=== PATIENT | male | born 1945 | race Caucasian/White ===

== ENCOUNTER 2017-12-21 12:06 | Inpatient (IN) | payer OTHER, BC ==
--- NOTE | 2017-12-21 12:22 | PDOC ---
History of Present Illness - General Chief Complaint: Wound Stated Complaint: SWOLLEN RT LEG Time Seen by Provider: 12/21/17 12:22 - History of Present Illness Initial Comments: 72 year old male with PMH of diabetes (last A1C 7.1) and HTN presenting with right foot swelling, redness, pain, and fever for the past week. Patient states that he felt some general warmth on Saturday01/14/18 which evolved into some redness and swelling that has worsened since and gradually spread up his leg. He saw his PCP (Dr. Lozano) on Saturday and was given Keflex daily since then but with gradually worsening. Denies any recent trauma to foot but did hit his right levy a few weeks prior that healed well. He does also admit to some athlete's foot and may have had a small skin opening under his right pinky toe. Denies any nausea, vomiting, diarrhea, chest penn, abdominal pain, headache, visual symptoms, drainage, or other symptoms. 12/21/17 13:12 Past History - Past Medical History Allergies/Adverse Reactions: Allergies Allergy/AdvReac Type Severity Reaction Status Date / Time No Known Allergies Allergy Verified 12/21/17 12:10 Home Medications: Ambulatory Orders Alfuzosin HCl [Alfuzosin HCl ER] 10 mg PO DAILY 12/21/17 Gardiance 25 mg PO DAILY 12/21/17 Pioglitazone HCl 30 mg PO DAILY 12/21/17 Ramipril [Altace] 50 mg PO DAILY 12/21/17 Sitagliptin Phosphate [Januvia] 100 mg PO DAILY 12/21/17 - Suicide/Smoking/Psychosocial Hx Smoking History: Never smoked Hx Alcohol Use: No Drug/Substance Use Hx: No Review of Systems - Review of Systems Constitutional: Yes: Fever. No: Chills, Diaphoresis, Loss of Appetite, Malaise , Night Sweats HEENTM: No: Eye Pain, Blurred Vision Respiratory: No: Shortness of Breath, SOB with Exertion, Wheezing Cardiac (ROS): No: Chest Pain, Edema, Irregular Heart Rate, Lightheadedness ABD/GI: No: Diarrhea, Nausea, Vomiting : No: Dysuria, Discharge Musculoskeletal: No: Back Pain, Joint Pain, Joint Swelling Integumentary: Yes: Erythema, Lesions, Rash. No: Bruising, Lumps Neurological: No: Headache, Numbness, Paresthesia Psychiatric: No: Anxiety, Depression Endocrine: No: Flushing, Intolerance to Cold, Intolerance to Heat Hematologic/Lymphatic: No: Anemia, Blood Clots, Easy Bleeding *Physical Exam - Vital Signs Last Vital Signs Temp Pulse Resp BP Pulse Ox 98.3 F 83 20 167/90 99 12/21/17 12:07 12/21/17 12:07 12/21/17 12:07 12/21/17 12:07 12/21/17 12:07 - Physical Exam General Appearance: Yes: Nourished, Appropriately Dressed. No: Apparent Distress HEENT: positive: EOMI, JANET, Normal ENT Inspection, Normal Voice Neck: positive: Trachea midline, Normal Thyroid, Supple. negative: Tender, Rigid Respiratory/Chest: positive: Lungs Clear, Normal Breath Sounds. negative: Chest Tender, Respiratory Distress, Accessory Muscle Use Cardiovascular: positive: Regular Rhythm, Regular Rate Gastrointestinal/Abdominal: positive: Normal Bowel Sounds, Flat, Soft. negative : Tender Musculoskeletal: positive: Normal Inspection. negative: Decreased Range of Motion Extremity: positive: Normal Capillary Refill, Normal Range of Motion, Tender, Swelling (Right leg swelling and erythema to his knee with minor mottling proximally. No obvious area of complete skin breakdown but toes do have suprficial skin breakdown consistent with his history of tinea pedis), Erythema , Inflammation. negative: Normal Inspection Integumentary: positive: Dry, Warm, Rash (Pe above). negative: Normal Color Neurologic: positive: Fully Oriented, Alert, Normal Mood/Affect, Normal Response , Motor Strength 5/5 ED Treatment Course - LABORATORY CBC & Chemistry Diagram: 12/21/17 12:50 12/21/17 12:50 Medical Decision Making - Medical Decision Making 72 year old male diabetic with right leg cellulites that is recalcitrant to oral Keflex therapy over the past few days. No obvious sign of recent leg trauma , labs WNL, and duplex/ XR negative for DVT/ osteo. Patient given Vanc, Zosyn, and will be admitted to hospitalist service per Dr. Lozano's request. EKG Rate 77, MD 170, QRS 92, QTc 434, normal axis, no ST or T wave changes. 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
--- NOTE | 2017-12-21 12:59 | PDOC ---
Attending Attestation - Resident Resident Name: Irvin Pabon - ED Attending Attestation I have performed the following: I have examined & evaluated the patient, The case was reviewed & discussed with the resident, I agree w/resident's findings & plan - HPI HPI: 12/21/17 16:33 72 YOM, with a significant past medical history of diabetes mellitus and HTN, who presents to the emergency department with, 1 week of right lower extremity pain, erythema, and swelling. Patient notes his symptoms initially onset warmth progressing to erythema, swelling, and spreading up his leg. As per patient, he saw his PCP Dr. Lozano who prescribed Keflex (compliant) however, symptoms has worsened. He denies any trauma to the limb but endorses, possible tinea to the right pinky toe. He denies any recent fevers, headache or dizziness. He denies any recent nausea , vomit, diarrhea or constipation. He denies any recent chest pain or shortness of breath. He denies any recent dysuria, frequency, urgency or hematuria. Allergies: NKA Social History: Nonsmoker. Denies EtOH use and recreational drug use. Primary Care Physician: Dr. Lozano - Physicial Exam PE: 12/21/17 16:33 NAD, well appearing, MMM, nl conjunctiva, anicteric; neck supple. lungs clear, RRR, abdomen soft nontender. BAINS x4, no focal neuro deficits. RLE 4+ peripheral edema, soft compartment, +erythema, warmth and diffuse tenderness, erythema extending from lower leg up to medial inner thigh/knee. SILT, 5/5 plantar and dorsiflexion. +calf tenderness. 2+ DP pulses. WWP. - Medical Decision Making 12/21/17 14:09 I, Yessi Beck MD, attest that this document has been prepared under my direction and personally reviewed by me in its entirety. I further attest, that it accurately reflects all work, treatment, procedures and medical decision -making performed by me. 72 YOM with DM2, HTN presenting with progressive RLE pain, swelling and redness , +calf pain, subjective chills x 1 week. Failed outpatient keflex x 4 days, last dose today without effect. +started with possible athelets foot, but no trauma, immobilization or bites. Vital signs reviewed, wnl. No fever. Infection Plan: CBC, CMP, blood cx, lactic acid, ECG, CXR. resuscitative IVF, antipyretics, analgesia, IV abx vancomcyin/zosyn given diabetes and extensive, RLE cellulitis failing outpatient ABX. Duplex US to r/o DVT, though low suspicion, more circumferential findings c/w cellulitis. Prior notes reviewed, including admissions, discharges and consultations. laboratory results and imaging reviewed, basic labs and lytes wnl, no wbc ct. inflammatory markers pending. lytes and Cr normal. Cultures pending, no open wounds. EKG normal sinus rhythm, no interval abnormalities, narrow QRS, ST and T wave segments and morphology normal. Nonspecific T wave abnormalities duplex neg for DVT XR RLE with lucency in right 5th toe region, no fx or subluxation, arthritic changes present. Admit for RLE cellulitis, IV abx, admit to hospitalist team, inpatient ID cs.. Discussed results and management plan with pt and family member at bedside, agree with impression and plan 12/21/17 16:35 Heart Score/ECG Review - ECG Impressions Normal ECG: Yes Comment:: 12/21/17 16:04 EKG normal sinus rhythm, no interval abnormalities, narrow QRS, ST and T wave segments and morphology normal. Nonspecific T wave abnormalities
[2017-12-21 13:21] LABS: BASO % 0.5 % (0-2.0); EOS % 0.7 % (0-4.5); HEMATOCRIT 41.8 % (35.4-49); HEMOGLOBIN 14.1 GM/dL (11.7-16.9); LYMPH % 15.5 % (8-40); MCH 30.2 pg (25.7-33.7); MCHC 33.8 g/dl (32.0-35.9); MEAN CELL VOLUME 89.1 fl (80-96); MEAN PLT VOLUME 7.1 fl (7.5-11.1); MONO % 11.3 % (3.8-10.2); PLATELET COUNT 246 K/MM3 (134-434); RBC 4.69 M/mm3 (4.00-5.60); RDW 13.2 % (11.9-15.9); WHITE BLOOD COUNT 8.7 K/mm3 (4.0-10.0)
[2017-12-21] MEDS ORDERED: VANCOMYCIN 1,500 MG in DEXTROSE 5%-WATER - 500 ML IVPB ONE (13:23)
[2017-12-21] MEDS ORDERED: PIPERACILLIN/TAZOB 4.5 GM 4.5 GM in DEXTROSE 5%-WATER 100 ML IVPB ONE (13:23)
[2017-12-21] MEDS ORDERED: PIPERACILLIN/TAZOB 4.5 GM 4.5 GM/100 ML BAG IVPB ONE (13:26)
[2017-12-21 13:46] LABS: INR 1.08 (0.83-1.09); PROTHROMBIN TIME (PATIENT) 12.8 SEC (9.7-13.0)
[2017-12-21 14:03] LABS: URINE APPEARANCE CLEAR; URINE BILIRUBIN NEGATIVE (<2.0 mg/dL); URINE COLOR LTYELLOW; URINE GLUCOSE (UA) 3+ (NEGATIVE); URINE KETONE NEGATIVE (NEGATIVE); URINE LEUK ESTERASE NEGATIVE (NEGATIVE); URINE NITRITE NEGATIVE (NEGATIVE); URINE PROTEIN NEGATIVE (NEGATIVE); URINE UROBILINOGEN NEGATIVE mg/dL (0.2-1.0)
[2017-12-21 14:05] LABS: ALBUMIN 3.4 g/dl (3.4-5.0); ALK PHOS 46 U/L (45-117); ANION GAP 8 MMOL/L (8-16); BILIRUBIN,TOTAL 0.7 mg/dL (0.2-1); BLOOD UREA NITROGEN 23 mg/dL (7-18); CALCIUM 9.1 mg/dL (8.5-10.1); CHLORIDE 100 mmol/L (98-107); CO2 28 mmol/L (21-32); CREATININE 1.3 mg/dL (0.55-1.3); GLUCOSE,RANDOM 167 mg/dL (74-106); POTASSIUM 4.4 mmol/L (3.5-5.1); SGOT/AST 55 U/L (15-37); SGPT/ALT 67 U/L (13-61); SODIUM 135 mmol/L (136-145); TOT PROT 7.9 g/dl (6.4-8.2)
[2017-12-21 14:17] LABS: ERYTHROCYTE SEDIMENTATION RATE 75 mm/hr (0-20)
[2017-12-21] MEDS ORDERED: VANCOMYCIN 1 GRAM (PRE-DOCKED) 1,000 MG/250 ML BAG IVPB ONE (14:40)
--- NOTE | 2017-12-21 16:25 | HP ---
CHIEF COMPLAINT: right lower extremity pain, redness, swelling PCP: Dr. Lozano HISTORY OF PRESENT ILLNESS: Patient is a 72 year old male with a significant past medical history of diabetes (controlled on 3 oral medications), BPH and hypertension. He presents to the ED with right lower extremity (from knee to right foot) edema, redness pain and fever for the past week. States his pain began last Saturday when he noted his right leg began to hurt and noted that his right leg was warm to touch, but mostly on the ankle. He noticed that the redness began to worsen and extended up from his ankle to his knee. He denies any trauma. He is noted to have a fungal infection of both feet. He went to see his primary care physician on Saturday and was prescribed oral antibiotics of Keflex, and took it as prescribed. His right lower leg worsened, became more painful prompting him to come to the ED. He denies any nausea, vomiting, diarrhea, chest penn, abdominal pain, headache, visual symptoms, drainage, or other symptoms. ER course was notable for: (1) vascular study, negative for dvt (2) fibula xray, negative for fracture (3) red, shiny edematous right lower extremity that is hot and painful to touch as well as +3 pitting edema. not weeping. Recent Travel: PAST MEDICAL HISTORY: diabetes, hypertension PAST SURGICAL HISTORY: n/a Social History: Smoking: years ago, no longer smokes Alcohol: occasional Drugs: denies Family History: Allergies No Known Allergies Allergy (Verified 12/21/17 12:10) HOME MEDICATIONS: Home Medications Medication Instructions Recorded Alfuzosin HCl [Alfuzosin HCl ER] 10 mg PO DAILY 12/21/17 Gardiance 25 mg PO DAILY 12/21/17 Pioglitazone HCl 30 mg PO DAILY 12/21/17 Ramipril [Altace] 50 mg PO DAILY 12/21/17 Sitagliptin Phosphate [Januvia] 100 mg PO DAILY 12/21/17 PHYSICAL EXAMINATION Vital Signs - 24 hr 12/21/17 12/21/17 12:07 14:21 Temperature 98.3 F Pulse Rate 83 Respiratory 20 Rate Blood Pressure 167/90 O2 Sat by Pulse 99 99 Oximetry (%) GENERAL: Awake, alert, and fully oriented, in no acute distress. HEAD: Normal with no signs of trauma. EYES: Pupils equal, round and reactive to light, extraocular movements intact, sclera anicteric, conjunctiva clear. No lid lag. EARS, NOSE, THROAT: Ears normal, nares patent, oropharynx clear without exudates. Moist mucous membranes. NECK: Normal range of motion, supple without lymphadenopathy, JVD, or masses. LUNGS: Breath sounds equal, clear to auscultation bilaterally. No wheezes, and no crackles. No accessory muscle use. HEART: Regular rate and rhythm ABDOMEN: Soft, nontender, not distended, normoactive bowel sounds, no guarding, no rebound, no masses. No hepatomegaly or splenomegaly. MUSCULOSKELETAL: Normal range of motion at all joints. No bony deformities or tenderness. No CVA tenderness. UPPER EXTREMITIES: 2+ pulses, warm, well-perfused. No cyanosis. No clubbing. No peripheral edema. LOWER EXTREMITIES: red, shiny edematous right lower extremity that is hot and painful to touch as well as +3 pitting edema. not weeping. NEUROLOGICAL: Cranial nerves II-XII intact. Normal speech. Normal gait. PSYCHIATRIC: Cooperative. Good eye contact. Appropriate mood and affect. Laboratory Results - last 24 hr 12/21/17 12/21/17 12/21/17 01:35 12:50 12:50 WBC 8.7 RBC 4.69 Hgb 14.1 Hct 41.8 MCV 89.1 MCH 30.2 MCHC 33.8 RDW 13.2 Plt Count 246 MPV 7.1 L Absolute Neuts (auto) 6.3 Neutrophils % 72.0 Lymphocytes % 15.5 Monocytes % 11.3 H Eosinophils % 0.7 Basophils % 0.5 Nucleated RBC % 0 ESR 75 H PT with INR INR Sodium 135 L Potassium 4.4 Chloride 100 Carbon Dioxide 28 Anion Gap 8 BUN 23 H Creatinine 1.3 Creat Clearance w eGFR 54.42 Random Glucose 167 H Lactic Acid Calcium 9.1 Total Bilirubin 0.7 AST 55 H ALT 67 H Alkaline Phosphatase 46 C-Reactive Protein 5.3 H Total Protein 7.9 Albumin 3.4 Urine Color Ltyellow Urine Appearance Clear Urine pH 5.0 Ur Specific [place] 1.017 Urine Protein Negative Urine Glucose (UA) 3+ H Urine Ketones Negative Urine Blood Negative Urine Nitrite Negative Urine Bilirubin Negative Urine Urobilinogen Negative Ur Leukocyte Esterase Negative 12/21/17 12/21/17 13:20 13:20 WBC RBC Hgb Hct MCV MCH MCHC RDW Plt Count MPV Absolute Neuts (auto) Neutrophils % Lymphocytes % Monocytes % Eosinophils % Basophils % Nucleated RBC % ESR PT with INR 12.80 INR 1.08 Sodium Potassium Chloride Carbon Dioxide Anion Gap BUN Creatinine Creat Clearance w eGFR Random Glucose Lactic Acid 1.0 Calcium Total Bilirubin AST ALT Alkaline Phosphatase C-Reactive Protein Total Protein Albumin Urine Color Urine Appearance Urine pH Ur Specific [place] Urine Protein Urine Glucose (UA) Urine Ketones Urine Blood Urine Nitrite Urine Bilirubin Urine Urobilinogen Ur Leukocyte Esterase ASSESSMENT/PLAN: Patient is a 72 year old male with a significant past medical history of diabetes (controlled on 3 oral medications), BPH and hypertension. He presents to the ED with right lower extremity (from knee to right foot) edema, redness, pain and fever for the past week. States his pain began last Saturday afternoon when he noted his right leg began to hurt and noted that his right leg was warm to touch, but mostly on the ankle. He noticed that the redness began to worsen and extended up from his ankle to his knee. He denies any trauma. He is noted to have a fungal infection of both feet. He went to see his primary care physician on Saturday and was prescribed oral antibiotics of Keflex, and took it as prescribed. His right lower leg worsened, became more painful prompting him to come to the ED. He denies any nausea, vomiting, diarrhea, chest penn, abdominal pain, headache, visual symptoms, drainage, or other symptoms. ID: Cellulitis of right lower extremity. Negative for dvt No fracture seen on xray MRI to rule out osteo will order: Zosyn 1 time dose and consult ID for further recommendations Patient received Vanco 1500mg and Zosyn 4.5gm in the ED. Elevate right lower extremity with 2 pillows Monitor for pain - toradol ordered mri to rule out osteo Card: Hypertension: On Ramipril 10mg. monitor bp. elevated in the ED. (took med this morning) Endocrine Diabetes. hmga1c, diabetic diet. Home meds of Lalito Coughlin Januvia (Jardiance NF), will also cover with Novolog and SS. : BPH. on Alfuzosin (NF here) per pharmacy. Will ask patient to bring in home medication. fen diabetic diet monitor electrolytes no ivf indicated. prophy heparin bid full code. Visit type - Emergency Visit Emergency Visit: Yes ED Registration Date: 12/21/17 Care time: The patient presented to the Emergency Department on the above date and was hospitalized for further evaluation of their emergent condition. - New Patient This patient is new to me today: Yes Date on this admission: 12/21/17 - Critical Care Critical Care patient: No
--- NOTE | 2017-12-21 16:39 | EKG ---
Test Reason : Blood Pressure : / mmHG Vent. Rate : 077 BPM Atrial Rate : 077 BPM P-R Int : 170 ms QRS Dur : 092 ms QT Int : 384 ms P-R-T Axes : 066 007 031 degrees QTc Int : 434 ms NORMAL SINUS RHYTHM NORMAL ECG NO PREVIOUS ECGS AVAILABLE Confirmed by JUSTO BIRD, KIKI ([id number]) on 12/21/2017 4:39:42 PM Referred By: Confirmed By:KIKI KEMP MD
[2017-12-21] MEDS: INSULIN SLIDING SCALE (NOVOLOG) 1 VIAL SQ SCH ×2 (18:00→21:45)
--- NOTE | 2017-12-21 18:49 | CON.ID ---
Consult Consult Specialty:: infectious diseases Referred by:: Ivan Reason for Consultation:: cellulitits of the leg - History of Present Illness Chief Complaint: pain and swelling of the leg History of Present Illness: 72 year old male with a significant past medical history of diabetes , BPH and hypertension. He presents to the ED with right lower extremity (from knee to right foot) edema, redness pain and fever for the past week. States his pain began last Saturday when he noted his right leg began to hurt and noted that his right leg was warm to touch, but mostly on the ankle. He noticed that the redness began to worsen and extended up from his ankle to his knee. He denies any trauma. He is noted to have a fungal infection of both feet. He went to see his primary care physician on Saturday and was prescribed oral antibiotics of Keflex, and took it as prescribed. His right lower leg worsened , became more painful prompting him to come to the ED after he spoke to his primary doctor - History Source History Provided By: Patient Limitations to Obtaining History: No Limitations - Alcohol/Substance Use Hx Alcohol Use: No - Smoking History Smoking history: Never smoked Home Medications - Allergies Allergies/Adverse Reactions: Allergies Allergy/AdvReac Type Severity Reaction Status Date / Time No Known Allergies Allergy Verified 12/21/17 12:10 - Home Medications Home Medications: Ambulatory Orders Alfuzosin HCl [Alfuzosin HCl ER] 10 mg PO DAILY 12/21/17 Gardiance 25 mg PO DAILY 12/21/17 Pioglitazone HCl 30 mg PO DAILY 12/21/17 Ramipril [Altace] 50 mg PO DAILY 12/21/17 Sitagliptin Phosphate [Januvia] 100 mg PO DAILY 12/21/17 Review of Systems - Review of Systems Constitutional: reports: No Symptoms Eyes: reports: No Symptoms HENT: reports: No Symptoms Neck: reports: No Symptoms Cardiovascular: reports: No Symptoms Respiratory: reports: No Symptoms Gastrointestinal: reports: No Symptoms Genitourinary: reports: No Symptoms Musculoskeletal: reports: No Symptoms Integumentary: reports: Change in Color, Erythema (rt leg) Neurological: reports: No Symptoms Endocrine: reports: No Symptoms Hematology/Lymphatic: reports: No Symptoms Psychiatric: reports: No Symptoms Physical Exam Vital Signs: Vital Signs Temperature 98.3 F 12/21/17 12:07 Pulse Rate 83 12/21/17 12:07 Respiratory Rate 20 12/21/17 12:07 Blood Pressure 167/90 12/21/17 12:07 O2 Sat by Pulse Oximetry (%) 99 12/21/17 14:21 Constitutional: Yes: Well Nourished, Calm, Mild Distress Cardiovascular: Yes: Regular Rate and Rhythm Respiratory: Yes: Regular, CTA Bilaterally Gastrointestinal: Yes: Normal Bowel Sounds, Soft Musculoskeletal: Yes: Other Extremities: Yes: Erythema Edema: RLE: 1+ Integumentary: Yes: Erythema, Other (rt leg swelling) Neurological: Yes: Alert, Oriented Psychiatric: Yes: Alert, Oriented Labs: CBC, BMP 12/21/17 12:50 12/21/17 12:50 Assessment/Plan cellulittis of the rt leg htn dm swelling of the rt leg pain plan will start broad spectrum abx will see how the leg is tomorrow and then take the final decision rest as per the team
[2017-12-21] MEDS ORDERED: PIPERACILLIN/TAZOB 3.375 GM 3.375 GM in DEXTROSE 5%-WATER - 50 ML IVPB ONE (21:00)
[2017-12-21] MEDS ORDERED: INSULIN (NOVOLOG) ASPART 100 UNITS/ML 10ML VIAL ONE (21:41)
[2017-12-21] MEDS: HEPARIN NA (PORCINE) 5,000 UNITS/ML 1ML VIAL SQ SCH (21:45)
[2017-12-21] MEDS: ACETAMINOPHEN 325 MG TABLET (FP) PO PRN (21:45)
[2017-12-21 23:47] VITALS: BMI 33.7
[2017-12-21] MEDS: KETOROLAC TROMETHAMINE 10 MG TABLET PO SCH (23:56)
[2017-12-22] MEDS ORDERED: PIPERACILLIN/TAZOBACTAM 3.375 GM VIAL IVPB ONE ×3 (01:40→16:39)
[2017-12-22] MEDS ORDERED: DEXTROSE 5%-WATER - 50 ML IVPB ONE ×3 (01:40→16:40)
[2017-12-22] MEDS: PIPERACILLIN/TAZOB 3.375 GM 3.375 GM in DEXTROSE 5%-WATER - 50 ML IVPB SCH ×3 (01:52→17:34)
[2017-12-22] MEDS ORDERED: PT OWN MED DRAWER 7, Y5N ONE (06:30)
[2017-12-22] MEDS: sitaGLIPtin PHOSPHATE 100 MG TABLET (FP) PO SCH (06:34)
[2017-12-22] MEDS: PIOGLITAZONE HCL 30 MG TABLET (FP) PO SCH (06:34)
[2017-12-22] MEDS: KETOROLAC TROMETHAMINE 10 MG TABLET PO SCH ×3 (06:34→17:38)
[2017-12-22] MEDS: INSULIN SLIDING SCALE (NOVOLOG) 1 VIAL SQ SCH ×4 (06:35→21:17)
[2017-12-22] MEDS ORDERED: [UNRECOGNIZED DRUG - OTHER] PO SCH (10:00)
[2017-12-22] MEDS: HEPARIN NA (PORCINE) 5,000 UNITS/ML 1ML VIAL SQ SCH ×2 (10:01→21:18)
[2017-12-22] MEDS: TAMSULOSIN HCL 0.4 MG CAP.ER.24H (FP) PO SCH (10:02)
[2017-12-22] MEDS: RAMIPRIL 5 MG CAPSULE (FP) PO SCH (10:02)
[2017-12-22 10:04] LABS: HEMATOCRIT 39.7 % (35.4-49); HEMOGLOBIN 13.2 GM/dL (11.7-16.9); MCH 29.8 pg (25.7-33.7); MCHC 33.4 g/dl (32.0-35.9); MEAN CELL VOLUME 89.5 fl (80-96); MEAN PLT VOLUME 6.7 fl (7.5-11.1); PLATELET COUNT 242 K/MM3 (134-434); RBC 4.44 M/mm3 (4.00-5.60); RDW 12.9 % (11.9-15.9)
[2017-12-22 11:14] LABS: ALBUMIN 3.2 g/dl (3.4-5.0); ALK PHOS 46 U/L (45-117); ANION GAP 7 MMOL/L (8-16); BILIRUBIN,TOTAL 0.9 mg/dL (0.2-1); BLOOD UREA NITROGEN 26 mg/dL (7-18); CALCIUM 8.5 mg/dL (8.5-10.1); CHLORIDE 99 mmol/L (98-107); CHOLESTEROL 218 mg/dL (50-200); CO2 28 mmol/L (21-32); CREATININE 1.4 mg/dL (0.55-1.3); GLUCOSE,RANDOM 181 mg/dL (74-106); MAGNESIUM 2.3 mg/dL (1.8-2.4); POTASSIUM 4.4 mmol/L (3.5-5.1); SGOT/AST 44 U/L (15-37); SGPT/ALT 61 U/L (13-61); SODIUM 134 mmol/L (136-145); TOT PROT 7.6 g/dl (6.4-8.2); TRIGLYCERIDES 148 mg/dL (0-150)
[2017-12-22] MEDS ORDERED: INSULIN (NOVOLOG) ASPART 100 UNITS/ML 10ML VIAL ONE ×3 (12:17→21:09)
--- NOTE | 2017-12-22 12:21 | PN ---
Progress Note, Physician History of Present Illness: patient feeling well pain better swelling has decreased - Current Medication List Current Medications: Active Medications Acetaminophen (Tylenol -) 650 mg PO Q6H PRN PRN Reason: PAIN LEVEL 7 - 10 Last Admin: 12/21/17 21:45 Dose: 650 mg Heparin Sodium (Porcine) (Heparin -) 5,000 unit SQ BID [facility] Last Admin: 12/22/17 10:01 Dose: 5,000 unit Piperacillin Sod/Tazobactam (Sod 3.375 gm/ Dextrose) 50 mls @ 100 mls/hr IVPB Q8H-IV [facility]; Protocol Last Admin: 12/22/17 10:02 Dose: 100 mls/hr Insulin Aspart (Novolog Vial Sliding Scale -) 1 vial SQ ACHS [facility]; Protocol Last Admin: 12/22/17 11:41 Dose: 2 units Ketorolac Tromethamine (Toradol) 10 mg PO Q6HPO [facility] Stop: 12/26/17 00:00 Last Admin: 12/22/17 11:42 Dose: 10 mg Non-Formulary Medication (Gardiance) 25 mg PO DAILY [facility] Pioglitazone HCl (Actos -) 30 mg PO 0700 [facility] Last Admin: 12/22/17 06:34 Dose: 30 mg Ramipril (Altace -) 10 mg PO DAILY [facility] Last Admin: 12/22/17 10:02 Dose: 10 mg Sitagliptin Phosphate (Januvia -) 100 mg PO 0700 [facility] Last Admin: 12/22/17 06:34 Dose: 100 mg Tamsulosin HCl (Flomax -) 0.4 mg PO 0830 [facility] Last Admin: 12/22/17 10:02 Dose: 0.4 mg - Objective Vital Signs: Vital Signs Temperature 98.5 F 12/22/17 06:00 Pulse Rate 82 12/22/17 11:00 Respiratory Rate 18 12/22/17 11:00 Blood Pressure 152/91 12/22/17 11:00 O2 Sat by Pulse Oximetry (%) 99 12/22/17 03:00 Constitutional: Yes: No Distress, Calm Cardiovascular: Yes: Regular Rate and Rhythm Respiratory: Yes: Regular, CTA Bilaterally Gastrointestinal: Yes: Normal Bowel Sounds, Soft Genitourinary: Yes: WNL Musculoskeletal: Yes: WNL Extremities: Yes: WNL Edema: RLE: 3+ Integumentary: Yes: Erythema Neurological: Yes: Alert, Oriented Labs: CBC, BMP 12/22/17 09:45 12/22/17 09:45 INR, PTT INR 1.08 (0.83-1.09) 12/21/17 13:20 Assessment/Plan cellulittis of the rt leg htn dm swelling of the rt leg pain plan continue abx elevation of the leg rest as per the team patient improving
[2017-12-22 12:52] LABS: HDL CHOLESTEROL 35 mg/dL (40-60)
[2017-12-22] MEDS ORDERED: SODIUM CHLORIDE 1,000 ML IV SCH (14:15)
--- NOTE | 2017-12-22 14:56 | PN ---
Physical Exam: SUBJECTIVE: Patient seen and examined OBJECTIVE: Vital Signs Period Temp Pulse Resp BP Sys/Lambert Pulse Ox Last 24 Hr 98.5 F-100.1 F 73-88 18-20 130-158/73-91 98-99 GENERAL: The patient is awake, alert, and fully oriented, in no acute distress. HEAD: Normal with no signs of trauma. EYES: PERRL, extraocular movements intact, sclera anicteric, conjunctiva clear. No ptosis. ENT: Ears normal, nares patent, oropharynx clear without exudates, moist mucous membranes. NECK: Trachea midline, full range of motion, supple. LUNGS: Breath sounds equal, clear to auscultation bilaterally, no wheezes, no crackles, no accessory muscle use. HEART: Regular rate and rhythm, S1, S2 without murmur, rub or gallop. ABDOMEN: Soft, nontender, nondistended, normoactive bowel sounds, no guarding, no rebound, no hepatosplenomegaly, no masses. EXTREMITIES: 2+ pulses, warm, well-perfused, no edema. NEUROLOGICAL: Cranial nerves II through XII grossly intact. Normal speech, gait not observed. PSYCH: Normal mood, normal affect. SKIN: Warm, dry, normal turgor, no rashes or lesions noted Laboratory Results - last 24 hr 12/21/17 12/21/17 12/22/17 17:55 21:43 06:00 WBC RBC Hgb Hct MCV MCH MCHC RDW Plt Count MPV Sodium Potassium Chloride Carbon Dioxide Anion Gap BUN Creatinine Creat Clearance w eGFR POC Glucometer [phone] Random Glucose Hemoglobin A1c % 7.4 H Calcium Magnesium Total Bilirubin AST ALT Alkaline Phosphatase Total Protein Albumin Triglycerides Cholesterol Total LDL Cholesterol HDL Cholesterol 12/22/17 12/22/17 12/22/17 06:09 09:45 09:45 WBC 8.0 RBC 4.44 Hgb 13.2 Hct 39.7 MCV 89.5 MCH 29.8 MCHC 33.4 RDW 12.9 Plt Count 242 MPV 6.7 L Sodium 134 L Potassium 4.4 Chloride 99 Carbon Dioxide 28 Anion Gap 7 L BUN 26 H Creatinine 1.4 H Creat Clearance w eGFR 49.96 POC Glucometer 194 Random Glucose 181 H Hemoglobin A1c % Calcium 8.5 Magnesium 2.3 Total Bilirubin 0.9 AST 44 H ALT 61 Alkaline Phosphatase 46 Total Protein 7.6 Albumin 3.2 L Triglycerides 148 Cholesterol 218 H Total LDL Cholesterol 178 H HDL Cholesterol 35 L 12/22/17 11:01 WBC RBC Hgb Hct MCV MCH MCHC RDW Plt Count MPV Sodium Potassium Chloride Carbon Dioxide Anion Gap BUN Creatinine Creat Clearance w eGFR POC Glucometer 166 Random Glucose Hemoglobin A1c % Calcium Magnesium Total Bilirubin AST ALT Alkaline Phosphatase Total Protein Albumin Triglycerides Cholesterol Total LDL Cholesterol HDL Cholesterol Active Medications Generic Name Dose Route Start Last Admin Trade Name Freq PRN Reason Stop Dose Admin Acetaminophen 650 mg 12/21/17 18:20 12/21/17 21:45 Tylenol - PO 650 mg Q6H PRN Administration PAIN LEVEL 7 - 10 Heparin Sodium (Porcine) 5,000 unit 12/21/17 22:00 12/22/17 10:01 Heparin - SQ 5,000 unit BID KELSI Administration Piperacillin Sod/Tazobactam 50 mls @ 100 mls/hr 12/22/17 02:00 12/22/17 10:02 Sod 3.375 gm/ Dextrose IVPB 100 mls/hr Q8H-IV KELSI Administration Protocol Sodium Chloride 1,000 mls @ 50 mls/hr 12/22/17 14:15 Normal Saline - IV 12/23/17 14:07 ASDIR KELSI Insulin Aspart 1 vial 12/21/17 16:30 12/22/17 11:41 Novolog Vial Sliding Scale - SQ 2 units ACHS KELSI Administration Protocol Ketorolac Tromethamine 10 mg 12/22/17 00:00 12/22/17 11:42 Toradol PO 12/26/17 00:00 10 mg Q6HPO KELSI Administration Non-Formulary Medication 25 mg 12/22/17 10:00 Gardiance PO DAILY KELSI Pioglitazone HCl 30 mg 12/22/17 07:00 12/22/17 06:34 Actos - PO 30 mg 0700 KELSI Administration Ramipril 10 mg 12/22/17 10:00 12/22/17 10:02 Altace - PO 10 mg DAILY KELSI Administration Sitagliptin Phosphate 100 mg 12/22/17 07:00 12/22/17 06:34 Januvia - PO 100 mg 0700 KELSI Administration Tamsulosin HCl 0.4 mg 12/22/17 10:00 12/22/17 10:02 Flomax - PO 0.4 mg 0830 KELSI Administration ASSESSMENT/PLAN: Patient is a 72 year old male with a significant past medical history of diabetes (controlled on 3 oral medications), BPH and hypertension. He presents to the ED with right lower extremity (from knee to right foot) edema, redness, pain and fever for the past week. States his pain began last Saturday afternoon when he noted his right leg began to hurt and noted that his right leg was warm to touch, but mostly on the ankle. ID: Cellulitis of right lower extremity. Negative for dvt No fracture seen on xray MRI w/o evidence of osteomylits. On Zosyn per ID Elevate right lower extremity with 2 - 3 pillows encouraged Monitor for pain - toradol ordered, pain is controlled Infection likely began on foot, patient has fungal nails. Will consult podiatry. Card: Hypertension: On Ramipril 10mg. monitor bp. controlled. Endocrine Diabetes. hmga1c, diabetic diet. Home meds of Ced ActMarcelo méndezuvnavjot (Jardiance NF), will also cover with Novolog and SS. Renal DEVIN. start on gentle hydration and monitor renal function. : BPH. on Alfuzosin (NF here) per pharmacy. on flomax. fen diabetic diet monitor electrolytes ivf x 24 hours for devin and hyponatremia prophy heparin bid full code. Visit type - Emergency Visit Emergency Visit: Yes ED Registration Date: 12/21/17 Care time: The patient presented to the Emergency Department on the above date and was hospitalized for further evaluation of their emergent condition. - New Patient This patient is new to me today: No - Critical Care Critical Care patient: No - Discharge Referral Referred to [facility] Med P.C.: No
[2017-12-22] MEDS ORDERED: ATORVASTATIN CA 20 MG TABLET (FP) PO SCH (22:00)
[2017-12-23] MEDS: KETOROLAC TROMETHAMINE 10 MG TABLET PO SCH ×5 (00:30→23:20)
[2017-12-23] MEDS ORDERED: PIPERACILLIN/TAZOBACTAM 3.375 GM VIAL IVPB ONE ×4 (02:12→17:00)
[2017-12-23] MEDS ORDERED: DEXTROSE 5%-WATER - 50 ML IVPB ONE ×4 (02:12→17:00)
[2017-12-23] MEDS: PIPERACILLIN/TAZOB 3.375 GM 3.375 GM in DEXTROSE 5%-WATER - 50 ML IVPB SCH ×3 (02:23→17:07)
[2017-12-23] MEDS ORDERED: PT OWN MED DRAWER 7, Y5N ONE ×5 (05:45→23:36)
[2017-12-23] MEDS: sitaGLIPtin PHOSPHATE 100 MG TABLET (FP) PO SCH (06:49)
[2017-12-23] MEDS: INSULIN SLIDING SCALE (NOVOLOG) 1 VIAL SQ SCH ×4 (06:50→21:20)
[2017-12-23] MEDS: PIOGLITAZONE HCL 30 MG TABLET (FP) PO SCH (07:27)
[2017-12-23 07:36] LABS: BASO % 0.6 % (0-2.0); EOS % 0.7 % (0-4.5); HEMATOCRIT 38.2 % (35.4-49); HEMOGLOBIN 12.8 GM/dL (11.7-16.9); LYMPH % 18.1 % (8-40); MCH 29.6 pg (25.7-33.7); MCHC 33.5 g/dl (32.0-35.9); MEAN CELL VOLUME 88.5 fl (80-96); MEAN PLT VOLUME 6.8 fl (7.5-11.1); MONO % 9.3 % (3.8-10.2); NEUT % 71.3 % (42.8-82.8); PLATELET COUNT 256 K/MM3 (134-434); RBC 4.32 M/mm3 (4.00-5.60); RDW 12.8 % (11.9-15.9); WHITE BLOOD COUNT 7.3 K/mm3 (4.0-10.0)
[2017-12-23 08:11] LABS: ALBUMIN 2.9 g/dl (3.4-5.0); ALK PHOS 39 U/L (45-117); ANION GAP 10 MMOL/L (8-16); BILIRUBIN,TOTAL 0.7 mg/dL (0.2-1); BLOOD UREA NITROGEN 25 mg/dL (7-18); CALCIUM 8.4 mg/dL (8.5-10.1); CHLORIDE 101 mmol/L (98-107); CO2 22 mmol/L (21-32); CREATININE 1.2 mg/dL (0.55-1.3); GLUCOSE,RANDOM 134 mg/dL (74-106); POTASSIUM 4.4 mmol/L (3.5-5.1); SGOT/AST 44 U/L (15-37); SGPT/ALT 56 U/L (13-61); SODIUM 133 mmol/L (136-145); TOT PROT 7.4 g/dl (6.4-8.2)
[2017-12-23] MEDS: TAMSULOSIN HCL 0.4 MG CAP.ER.24H (FP) PO SCH (09:22)
[2017-12-23] MEDS: RAMIPRIL 5 MG CAPSULE (FP) PO SCH (09:57)
[2017-12-23] MEDS: HEPARIN NA (PORCINE) 5,000 UNITS/ML 1ML VIAL SQ SCH ×2 (09:58→21:20)
[2017-12-23] MEDS ORDERED: INSULIN (NOVOLOG) ASPART 100 UNITS/ML 10ML VIAL ONE ×2 (11:42→16:54)
--- NOTE | 2017-12-23 11:53 | PN ---
Physical Exam: SUBJECTIVE: Patient seen and examined at the bedside. Ambulating in room, states pain is more controlled. OBJECTIVE: Vital Signs Period Temp Pulse Resp BP Sys/Lambert Pulse Ox Last 24 Hr 98.0 F-99.7 F 75-102 20-21 114-159/64-93 99 GENERAL: Awake, alert, and fully oriented, in no acute distress. HEAD: Normal with no signs of trauma. EYES: Pupils equal, round and reactive to light, extraocular movements intact, sclera anicteric, conjunctiva clear. No lid lag. EARS, NOSE, THROAT: Ears normal, nares patent, oropharynx clear without exudates. Moist mucous membranes. NECK: Normal range of motion, supple without lymphadenopathy, JVD, or masses. LUNGS: Breath sounds equal, clear to auscultation bilaterally. No wheezes, and no crackles. No accessory muscle use. HEART: Regular rate and rhythm ABDOMEN: Soft, nontender, not distended, normoactive bowel sounds, no guarding, no rebound, no masses. No hepatomegaly or splenomegaly. MUSCULOSKELETAL: Normal range of motion at all joints. No bony deformities or tenderness. No CVA tenderness. UPPER EXTREMITIES: No clubbing. No peripheral edema. LOWER EXTREMITIES: red, shiny edematous right lower extremity that is warm, not painful to touch as well as +3 pitting edema. not weeping. NEUROLOGICAL: Cranial nerves II-XII intact. Normal speech. Normal gait. PSYCHIATRIC: Cooperative. Good eye contact. Appropriate mood and affect. Laboratory Results - last 24 hr 12/22/17 12/22/17 12/22/17 09:45 16:21 21:15 WBC RBC Hgb Hct MCV MCH MCHC RDW Plt Count MPV Absolute Neuts (auto) Neutrophils % Lymphocytes % Monocytes % Eosinophils % Basophils % Nucleated RBC % Sodium Potassium Chloride Carbon Dioxide Anion Gap BUN Creatinine Creat Clearance w eGFR POC Glucometer 175 157 Random Glucose Calcium Total Bilirubin AST ALT Alkaline Phosphatase Total Protein Albumin HDL Cholesterol 35 L 12/23/17 12/23/17 12/23/17 06:30 06:30 06:48 WBC 7.3 RBC 4.32 Hgb 12.8 Hct 38.2 MCV 88.5 MCH 29.6 MCHC 33.5 RDW 12.8 Plt Count 256 MPV 6.8 L Absolute Neuts (auto) 5.2 Neutrophils % 71.3 Lymphocytes % 18.1 Monocytes % 9.3 Eosinophils % 0.7 Basophils % 0.6 Nucleated RBC % 0 Sodium 133 L Potassium 4.4 Chloride 101 Carbon Dioxide 22 Anion Gap 10 BUN 25 H Creatinine 1.2 Creat Clearance w eGFR 59.68 POC Glucometer 141 Random Glucose 134 H Calcium 8.4 L Total Bilirubin 0.7 AST 44 H ALT 56 Alkaline Phosphatase 39 L Total Protein 7.4 Albumin 2.9 L HDL Cholesterol 12/23/17 11:20 WBC RBC Hgb Hct MCV MCH MCHC RDW Plt Count MPV Absolute Neuts (auto) Neutrophils % Lymphocytes % Monocytes % Eosinophils % Basophils % Nucleated RBC % Sodium Potassium Chloride Carbon Dioxide Anion Gap BUN Creatinine Creat Clearance w eGFR POC Glucometer 218 Random Glucose Calcium Total Bilirubin AST ALT Alkaline Phosphatase Total Protein Albumin HDL Cholesterol Active Medications Generic Name Dose Route Start Last Admin Trade Name Freq PRN Reason Stop Dose Admin Acetaminophen 650 mg 12/21/17 18:20 12/21/17 21:45 Tylenol - PO 650 mg Q6H PRN Administration PAIN LEVEL 7 - 10 Docusate Sodium 100 mg 12/22/17 17:47 Colace - PO BID PRN CONSTIPATION Heparin Sodium (Porcine) 5,000 unit 12/21/17 22:00 12/23/17 09:58 Heparin - SQ 5,000 unit BID KELSI Administration Piperacillin Sod/Tazobactam 50 mls @ 100 mls/hr 12/22/17 02:00 12/23/17 10:03 Sod 3.375 gm/ Dextrose IVPB 100 mls/hr Q8H-IV KELSI Administration Protocol Sodium Chloride 1,000 mls @ 50 mls/hr 12/22/17 14:15 12/22/17 15:35 Normal Saline - IV 12/23/17 14:07 50 mls/hr ASDIR KELSI Administration Insulin Aspart 1 vial 12/21/17 16:30 12/23/17 06:50 Novolog Vial Sliding Scale - SQ Not Given ACHS KELSI Protocol Ketorolac Tromethamine 10 mg 12/22/17 00:00 12/23/17 06:49 Toradol PO 12/26/17 00:00 10 mg Q6HPO KELSI Administration Non-Formulary Medication 25 mg 12/22/17 10:00 Gardiance PO DAILY KELSI Pioglitazone HCl 30 mg 12/22/17 07:00 12/23/17 07:27 Actos - PO 30 mg 0700 KELSI Administration Ramipril 10 mg 12/22/17 10:00 12/23/17 09:57 Altace - PO 10 mg DAILY KELSI Administration Sitagliptin Phosphate 100 mg 12/22/17 07:00 12/23/17 06:49 Januvia - PO 100 mg 0700 KELSI Administration Tamsulosin HCl 0.4 mg 12/22/17 10:00 12/23/17 09:22 Flomax - PO 0.4 mg 0830 KELSI Administration ASSESSMENT/PLAN: Patient is a 72 year old male with a significant past medical history of diabetes (controlled on 3 oral medications), BPH and hypertension. He presents to the ED with right lower extremity (from knee to right foot) edema, redness, pain and fever for the past week. States his pain began last Saturday afternoon when he noted his right leg began to hurt and noted that his right leg was warm to touch, but mostly on the ankle. ID: Cellulitis of right lower extremity. Failed outpatient PO antibiotics. Was on Kelfex per his PCP, RLE worsened, and sent to hospital for IV antibiotics. Negative for DVT. No fracture seen on xray MRI w/o evidence of osteomylits. On Zosyn per ID (day #2) Elevate right lower extremity with 2 - 3 pillows encouraged Monitor for pain - toradol ordered, pain is controlled Infection likely began on foot, patient has fungal nails. Podiatry and vascular following. Card: Hypertension, controlled. On Ramipril 10mg. monitor bp. controlled. Endocrine Diabetes. hmga1c, diabetic diet. Home meds of Lalito Coughlin Januvia (Jardiance NF), will also cover with Novolog and SS. goal is to keep fasting blood sugar <180. Renal DEVIN, improved with 1 liters of IVF, monitor off IVF and avoid nephrotoxins. Hyponatremia, mild. monitor with daily labs. : BPH. on Alfuzosin (NF here) per pharmacy. on flomax. fen diabetic diet monitor electrolytes monitor hyponatremia prophy heparin bid full code. discharge home once cleared by ID. Will need outpatient follow up with podiatry. Visit type - Emergency Visit Emergency Visit: Yes ED Registration Date: 12/21/17 Care time: The patient presented to the Emergency Department on the above date and was hospitalized for further evaluation of their emergent condition. - New Patient This patient is new to me today: No - Critical Care Critical Care patient: No - Discharge Referral Referred to [facility] Med P.C.: No
--- NOTE | 2017-12-23 13:18 | CONSULT ---
Consult Consult Specialty:: Podiatry Reason for Consultation:: cellulitis right foot with tinea pedis fissure sub 5th toe right - History of Present Illness Chief Complaint: cellulitis, edema, non palpable pulse right dp &pt secondary to edema. - History Source History Provided By: Patient Limitations to Obtaining History: No Limitations - Past Medical History Endocrine: Yes: Diabetes Mellitus - Alcohol/Substance Use Hx Alcohol Use: No - Smoking History Smoking history: Never smoked Home Medications - Allergies Allergies/Adverse Reactions: Allergies Allergy/AdvReac Type Severity Reaction Status Date / Time No Known Allergies Allergy Verified 12/21/17 12:10 - Home Medications Home Medications: Ambulatory Orders Alfuzosin HCl [Alfuzosin HCl ER] 10 mg PO DAILY 12/21/17 Gardiance 25 mg PO DAILY 12/21/17 Pioglitazone HCl 30 mg PO DAILY 12/21/17 Ramipril [Altace] 50 mg PO DAILY 12/21/17 Sitagliptin Phosphate [Januvia] 100 mg PO DAILY 12/21/17 Physical Exam Vital Signs: Vital Signs Temperature 99.7 F H 12/23/17 05:27 Pulse Rate 88 12/23/17 08:38 Respiratory Rate 20 12/23/17 08:38 Blood Pressure 159/81 12/23/17 08:38 O2 Sat by Pulse Oximetry (%) 99 12/23/17 09:00 Extremities: Yes: Other (edema right to knee with cellulitis and non palpable pulses right, +fissure sub 5th toe, -drainage, -mal odor,) Labs: CBC, BMP 12/23/17 06:30 12/23/17 06:30 Imaging - Results MRI: Report Reviewed (no om or abscess noted,) Problem List - Problems (1) Cellulitis Assessment/Plan: cellulitis tinea pedis right pvd? Vascular consult. Betadine interdigitally to interspaces right foot. IVABX as per ID. will follow Code(s): L03.90 - CELLULITIS, UNSPECIFIED Qualifiers: Site of cellulitis: extremity Site of cellulitis of extremity: lower extremity Laterality: right Qualified Code(s): L03.115 - Cellulitis of right lower limb
--- NOTE | 2017-12-23 14:48 | PN ---
Progress Note, Physician History of Present Illness: swelling worse today patient bearing weight erythema decreasing - Current Medication List Current Medications: Active Medications Acetaminophen (Tylenol -) 650 mg PO Q6H PRN PRN Reason: PAIN LEVEL 7 - 10 Last Admin: 12/21/17 21:45 Dose: 650 mg Docusate Sodium (Colace -) 100 mg PO BID PRN PRN Reason: CONSTIPATION Heparin Sodium (Porcine) (Heparin -) 5,000 unit SQ BID [facility] Last Admin: 12/23/17 09:58 Dose: 5,000 unit Piperacillin Sod/Tazobactam (Sod 3.375 gm/ Dextrose) 50 mls @ 100 mls/hr IVPB Q8H-IV [facility]; Protocol Last Admin: 12/23/17 10:03 Dose: 100 mls/hr Insulin Aspart (Novolog Vial Sliding Scale -) 1 vial SQ ACHS [facility]; Protocol Last Admin: 12/23/17 11:45 Dose: 2 units Ketorolac Tromethamine (Toradol) 10 mg PO Q6HPO [facility] Stop: 12/26/17 00:00 Last Admin: 12/23/17 12:05 Dose: 10 mg Non-Formulary Medication (Gardiance) 25 mg PO DAILY [facility] Pioglitazone HCl (Actos -) 30 mg PO 0700 [facility] Last Admin: 12/23/17 07:27 Dose: 30 mg Ramipril (Altace -) 10 mg PO DAILY [facility] Last Admin: 12/23/17 09:57 Dose: 10 mg Sitagliptin Phosphate (Januvia -) 100 mg PO 0700 [facility] Last Admin: 12/23/17 06:49 Dose: 100 mg Tamsulosin HCl (Flomax -) 0.4 mg PO 0830 [facility] Last Admin: 12/23/17 09:22 Dose: 0.4 mg - Objective Vital Signs: Vital Signs Temperature 99.7 F H 12/23/17 05:27 Pulse Rate 88 12/23/17 08:38 Respiratory Rate 20 12/23/17 08:38 Blood Pressure 159/81 12/23/17 08:38 O2 Sat by Pulse Oximetry (%) 99 12/23/17 09:00 Constitutional: Yes: No Distress, Calm Cardiovascular: Yes: Regular Rate and Rhythm Respiratory: Yes: Regular, CTA Bilaterally Gastrointestinal: Yes: Normal Bowel Sounds, Soft Musculoskeletal: Yes: Other Extremities: Yes: Other Edema: LLE: 2+, RLE: 1+ Integumentary: Yes: Erythema (improving) Neurological: Yes: Alert, Oriented Labs: CBC, BMP 12/23/17 06:30 12/23/17 06:30 INR, PTT INR 1.08 (0.83-1.09) 12/21/17 13:20 Assessment/Plan cellulittis of the rt leg htn dm swelling of the rt leg pain plan continue abx elevation of leg might need diuresis close watch rest as per the team
--- NOTE | 2017-12-23 16:21 | CONSULT ---
Consult Consult Specialty:: Vascular Surgery Reason for Consultation:: right foot cellulitis for 4 days, with fevers and chills at home. - History Source Limitations to Obtaining History: No Limitations - Past Medical History Endocrine: Yes: Diabetes Mellitus - Alcohol/Substance Use Hx Alcohol Use: No - Smoking History Smoking history: Never smoked Home Medications - Allergies Allergies/Adverse Reactions: Allergies Allergy/AdvReac Type Severity Reaction Status Date / Time No Known Allergies Allergy Verified 12/21/17 12:10 - Home Medications Home Medications: Ambulatory Orders Alfuzosin HCl [Alfuzosin HCl ER] 10 mg PO DAILY 12/21/17 Gardiance 25 mg PO DAILY 12/21/17 Pioglitazone HCl 30 mg PO DAILY 12/21/17 Ramipril [Altace] 50 mg PO DAILY 12/21/17 Sitagliptin Phosphate [Januvia] 100 mg PO DAILY 12/21/17 Review of Systems - Review of Systems Constitutional: reports: Fever, Lethargy Eyes: reports: No Symptoms HENT: reports: No Symptoms Neck: reports: No Symptoms Cardiovascular: reports: No Symptoms Respiratory: reports: No Symptoms Gastrointestinal: reports: No Symptoms Genitourinary: reports: No Symptoms Musculoskeletal: reports: No Symptoms Integumentary: reports: Erythema, Other (right foot erythema) Endocrine: reports: No Symptoms Hematology/Lymphatic: reports: No Symptoms Physical Exam Vital Signs: Vital Signs Temperature 97.7 F 12/23/17 15:25 Pulse Rate 78 12/23/17 15:25 Respiratory Rate 20 12/23/17 08:38 Blood Pressure 146/72 12/23/17 15:25 O2 Sat by Pulse Oximetry (%) 99 12/23/17 09:00 Constitutional: Yes: Well Nourished, No Distress, Calm Eyes: Yes: WNL, Conjunctiva Clear, EOM Intact HENT: Yes: WNL, Atraumatic, Normocephalic Neck: Yes: WNL, Supple, Trachea Midline Cardiovascular: Yes: WNL, Regular Rate and Rhythm Respiratory: Yes: WNL, Regular, CTA Bilaterally Gastrointestinal: Yes: WNL, Normal Bowel Sounds ...Rectal Exam: Yes: WNL Renal/: Yes: WNL Breast(s): Yes: WNL Musculoskeletal: Yes: WNL Extremities: Yes: WNL Edema: Yes Edema: RLE: 2+ Peripheral Pulses WNL: Yes Integumentary: Yes: WNL Neurological: Yes: WNL, Alert, Oriented ...Motor Strength: WNL Psychiatric: Yes: WNL Labs: CBC, BMP 12/23/17 06:30 12/23/17 06:30 Problem List - Problems (1) Cellulitis of right foot Assessment/Plan: Right foot celluliits 1. IV antibiotics 2. Will follow up in vascular clinic to work up venous insuff. 3. Leg elevation Code(s): L03.115 - CELLULITIS OF RIGHT LOWER LIMB
[2017-12-24] MEDS ORDERED: PIPERACILLIN/TAZOBACTAM 3.375 GM VIAL IVPB ONE ×3 (01:08→17:27)
[2017-12-24] MEDS ORDERED: DEXTROSE 5%-WATER - 50 ML IVPB ONE ×3 (01:09→17:28)
[2017-12-24] MEDS: PIPERACILLIN/TAZOB 3.375 GM 3.375 GM in DEXTROSE 5%-WATER - 50 ML IVPB SCH ×3 (01:49→17:44)
[2017-12-24] MEDS: INSULIN SLIDING SCALE (NOVOLOG) 1 VIAL SQ SCH ×4 (06:51→21:43)
[2017-12-24] MEDS: PIOGLITAZONE HCL 30 MG TABLET (FP) PO SCH (06:51)
[2017-12-24] MEDS: sitaGLIPtin PHOSPHATE 100 MG TABLET (FP) PO SCH (06:51)
[2017-12-24] MEDS: KETOROLAC TROMETHAMINE 10 MG TABLET PO SCH ×3 (06:51→17:45)
[2017-12-24 08:23] LABS: BASO % 0.6 % (0-2.0); EOS % 1.2 % (0-4.5); HEMOGLOBIN 11.9 GM/dL (11.7-16.9); LYMPH % 21.2 % (8-40); MCH 29.5 pg (25.7-33.7); MEAN CELL VOLUME 89.3 fl (80-96); MONO % 11.6 % (3.8-10.2); NEUT % 65.4 % (42.8-82.8); PLATELET COUNT 255 K/MM3 (134-434); RBC 4.03 M/mm3 (4.00-5.60); WHITE BLOOD COUNT 5.8 K/mm3 (4.0-10.0)
[2017-12-24 09:08] LABS: ALBUMIN 2.7 g/dl (3.4-5.0); ALK PHOS 36 U/L (45-117); ANION GAP 7 MMOL/L (8-16); BILIRUBIN,TOTAL 0.6 mg/dL (0.2-1); BLOOD UREA NITROGEN 17 mg/dL (7-18); CALCIUM 8.4 mg/dL (8.5-10.1); CHLORIDE 102 mmol/L (98-107); CO2 25 mmol/L (21-32); CREATININE 1.2 mg/dL (0.55-1.3); GLUCOSE,RANDOM 146 mg/dL (74-106); POTASSIUM 4.5 mmol/L (3.5-5.1); SGOT/AST 49 U/L (15-37); SGPT/ALT 54 U/L (13-61); SODIUM 134 mmol/L (136-145)
[2017-12-24] MEDS: RAMIPRIL 5 MG CAPSULE (FP) PO SCH (09:31)
[2017-12-24] MEDS: TAMSULOSIN HCL 0.4 MG CAP.ER.24H (FP) PO SCH (09:32)
[2017-12-24] MEDS: HEPARIN NA (PORCINE) 5,000 UNITS/ML 1ML VIAL SQ SCH ×2 (09:32→21:38)
[2017-12-24] MEDS ORDERED: PT OWN MED DRAWER 7, Y5N ONE ×2 (11:51→17:28)
--- NOTE | 2017-12-24 12:06 | PN ---
Progress Note (short form) - Note Progress Note: FUV patient right leg and foot. +cellulitis right foot, +edema right leg, wbc=5.8, cellulitis right foot and leg Read and appreciated vascular note. WBC continues to Improve. Will follow. No abscess on MRI. No drainage. Problem List - Problems (1) Cellulitis Code(s): L03.90 - CELLULITIS, UNSPECIFIED Qualifiers: Site of cellulitis: extremity Site of cellulitis of extremity: lower extremity Laterality: right Qualified Code(s): L03.115 - Cellulitis of right lower limb
--- NOTE | 2017-12-24 14:59 | PN ---
Progress Note, Physician History of Present Illness: stable no new issues - Current Medication List Current Medications: Active Medications Acetaminophen (Tylenol -) 650 mg PO Q6H PRN PRN Reason: PAIN LEVEL 7 - 10 Last Admin: 12/21/17 21:45 Dose: 650 mg Docusate Sodium (Colace -) 100 mg PO BID PRN PRN Reason: CONSTIPATION Heparin Sodium (Porcine) (Heparin -) 5,000 unit SQ BID [facility] Last Admin: 12/24/17 09:32 Dose: 5,000 unit Piperacillin Sod/Tazobactam (Sod 3.375 gm/ Dextrose) 50 mls @ 100 mls/hr IVPB Q8H-IV [facility]; Protocol Last Admin: 12/24/17 09:32 Dose: 100 mls/hr Insulin Aspart (Novolog Vial Sliding Scale -) 1 vial SQ ACHS [facility]; Protocol Last Admin: 12/24/17 11:07 Dose: Not Given Ketorolac Tromethamine (Toradol) 10 mg PO Q6HPO [facility] Stop: 12/26/17 00:00 Last Admin: 12/24/17 11:53 Dose: 10 mg Pioglitazone HCl (Actos -) 30 mg PO 0700 [facility] Last Admin: 12/24/17 06:51 Dose: 30 mg Ramipril (Altace -) 10 mg PO DAILY [facility] Last Admin: 12/24/17 09:31 Dose: 10 mg Sitagliptin Phosphate (Januvia -) 100 mg PO 0700 [facility] Last Admin: 12/24/17 06:51 Dose: 100 mg Tamsulosin HCl (Flomax -) 0.4 mg PO 0830 [facility] Last Admin: 12/24/17 09:32 Dose: 0.4 mg - Objective Vital Signs: Vital Signs Temperature 98.8 F 12/24/17 14:11 Pulse Rate 78 12/24/17 14:11 Respiratory Rate 18 12/24/17 08:12 Blood Pressure 140/69 12/24/17 14:11 O2 Sat by Pulse Oximetry (%) 99 12/23/17 21:00 Constitutional: Yes: No Distress, Calm Cardiovascular: Yes: Regular Rate and Rhythm Respiratory: Yes: Regular, CTA Bilaterally Gastrointestinal: Yes: Normal Bowel Sounds, Soft Musculoskeletal: Yes: WNL Extremities: Yes: Erythema (improving), Other Edema: RLE: 2+ Neurological: Yes: Alert, Oriented Labs: CBC, BMP 12/24/17 07:46 12/24/17 07:46 INR, PTT INR 1.08 (0.83-1.09) 12/21/17 13:20 Assessment/Plan cellulittis of the rt leg htn dm swelling of the rt leg pain plan continue abx elevation of the leg rest as per the team patient improving
[2017-12-24] MEDS ORDERED: INSULIN (NOVOLOG) ASPART 100 UNITS/ML 10ML VIAL ONE (16:02)
[2017-12-24] MEDS: DOCUSATE SODIUM 100 MG CAPSULE (FP) PO PRN (21:38)
[2017-12-24] MEDS: ACETAMINOPHEN 325 MG TABLET (FP) PO PRN (21:42)
[2017-12-25] MEDS ORDERED: DEXTROSE 5%-WATER - 50 ML IVPB ONE ×3 (01:02→17:36)
[2017-12-25] MEDS ORDERED: PIPERACILLIN/TAZOBACTAM 3.375 GM VIAL IVPB ONE ×3 (01:02→17:36)
[2017-12-25] MEDS: PIPERACILLIN/TAZOB 3.375 GM 3.375 GM in DEXTROSE 5%-WATER - 50 ML IVPB SCH ×3 (01:07→17:52)
[2017-12-25] MEDS: KETOROLAC TROMETHAMINE 10 MG TABLET PO SCH ×4 (01:07→17:53)
[2017-12-25] MEDS: sitaGLIPtin PHOSPHATE 100 MG TABLET (FP) PO SCH (06:07)
[2017-12-25] MEDS: PIOGLITAZONE HCL 30 MG TABLET (FP) PO SCH (06:07)
[2017-12-25] MEDS: INSULIN SLIDING SCALE (NOVOLOG) 1 VIAL SQ SCH ×4 (06:08→21:00)
[2017-12-25] MEDS: TAMSULOSIN HCL 0.4 MG CAP.ER.24H (FP) PO SCH (09:25)
[2017-12-25] MEDS: HEPARIN NA (PORCINE) 5,000 UNITS/ML 1ML VIAL SQ SCH ×2 (09:25→21:00)
[2017-12-25] MEDS: RAMIPRIL 5 MG CAPSULE (FP) PO SCH (09:26)
[2017-12-25] MEDS ORDERED: INSULIN (NOVOLOG) ASPART 100 UNITS/ML 10ML VIAL ONE ×2 (11:08→20:45)
[2017-12-25] MEDS ORDERED: PT OWN MED DRAWER 7, Y5N ONE ×3 (12:07→22:54)
--- NOTE | 2017-12-25 12:36 | PN ---
Progress Note, Physician History of Present Illness: swelling continues to remain erythema improved pain much better - Current Medication List Current Medications: Active Medications Acetaminophen (Tylenol -) 650 mg PO Q6H PRN PRN Reason: PAIN LEVEL 7 - 10 Last Admin: 12/24/17 21:42 Dose: 650 mg Docusate Sodium (Colace -) 100 mg PO BID PRN PRN Reason: CONSTIPATION Last Admin: 12/24/17 21:38 Dose: 100 mg Heparin Sodium (Porcine) (Heparin -) 5,000 unit SQ BID KELSI Last Admin: 12/25/17 09:25 Dose: 5,000 unit Piperacillin Sod/Tazobactam (Sod 3.375 gm/ Dextrose) 50 mls @ 100 mls/hr IVPB Q8H-IV [facility]; Protocol Last Admin: 12/25/17 09:25 Dose: 100 mls/hr Insulin Aspart (Novolog Vial Sliding Scale -) 1 vial SQ ACHS [facility]; Protocol Last Admin: 12/25/17 11:14 Dose: 6 units Ketorolac Tromethamine (Toradol) 10 mg PO Q6HPO [facility] Stop: 12/26/17 00:00 Last Admin: 12/25/17 12:09 Dose: 10 mg Pioglitazone HCl (Actos -) 30 mg PO 0700 [facility] Last Admin: 12/25/17 06:07 Dose: 30 mg Ramipril (Altace -) 10 mg PO DAILY [facility] Last Admin: 12/25/17 09:26 Dose: 10 mg Sitagliptin Phosphate (Januvia -) 100 mg PO 0700 [facility] Last Admin: 12/25/17 06:07 Dose: 100 mg Tamsulosin HCl (Flomax -) 0.4 mg PO 0830 [facility] Last Admin: 12/25/17 09:25 Dose: 0.4 mg - Objective Vital Signs: Vital Signs Temperature 98.2 F 12/25/17 11:42 Pulse Rate 84 12/25/17 11:42 Respiratory Rate 18 12/25/17 11:42 Blood Pressure 128/54 L 12/25/17 11:42 O2 Sat by Pulse Oximetry (%) 99 12/24/17 21:00 Constitutional: Yes: No Distress, Calm Cardiovascular: Yes: Regular Rate and Rhythm Respiratory: Yes: Regular, CTA Bilaterally Gastrointestinal: Yes: Normal Bowel Sounds, Soft Musculoskeletal: Yes: WNL Extremities: Yes: Other Integumentary: Yes: Erythema (resolved) Neurological: Yes: Alert Psychiatric: Yes: Alert Labs: CBC, BMP 12/24/17 07:46 12/24/17 07:46 INR, PTT INR 1.08 (0.83-1.09) 12/21/17 13:20 Assessment/Plan cellulittis of the rt leg htn dm swelling of the rt leg pain plan continue abx will deescalate soon elevation of leg close watch rest as per the team
--- NOTE | 2017-12-25 13:15 | PN ---
Physical Exam: SUBJECTIVE: Patient seen and examined sitting on edge of bed. present. Right leg feels better, is less swollen. OBJECTIVE: Vital Signs Period Temp Pulse Resp BP Sys/Lambert Pulse Ox Last 24 Hr 98.1 F-98.8 F 69-84 18-20 128-156/54-78 99 GENERAL: The patient is awake, alert, and fully oriented, in no acute distress. LUNGS: Breath sounds equal, clear to auscultation bilaterally, no wheezes, no crackles, no accessory muscle use. HEART: Regular rate and rhythm, S1, S2 ABDOMEN: Soft, nontender, nondistended RIGHT LOWER EXTREMITY: erythema, 3+ pitting edema, warmth from foot to knee NEUROLOGICAL: Cranial nerves II through XII grossly intact. Normal speech, gait not observed. CBCD WBC 5.8 K/mm3 (4.0-10.0) 12/24/17 07:46 RBC 4.03 M/mm3 (4.00-5.60) 12/24/17 07:46 Hgb 11.9 GM/dL (11.7-16.9) 12/24/17 07:46 Hct 36.0 % (35.4-49) 12/24/17 07:46 MCV 89.3 fl (80-96) 12/24/17 07:46 MCHC 33.0 g/dl (32.0-35.9) 12/24/17 07:46 RDW 13.0 % (11.9-15.9) 12/24/17 07:46 Plt Count 255 K/MM3 (134-434) 12/24/17 07:46 MPV 7.0 fl (7.5-11.1) L 12/24/17 07:46 CMP Sodium 134 mmol/L (136-145) L 12/24/17 07:46 Potassium 4.5 mmol/L (3.5-5.1) 12/24/17 07:46 Chloride 102 mmol/L (98-107) 12/24/17 07:46 Carbon Dioxide 25 mmol/L (21-32) 12/24/17 07:46 Anion Gap 7 MMOL/L (8-16) L 12/24/17 07:46 BUN 17 mg/dL (7-18) 12/24/17 07:46 Creatinine 1.2 mg/dL (0.55-1.3) 12/24/17 07:46 Creat Clearance w eGFR 59.68 (>60) 12/24/17 07:46 Calcium 8.4 mg/dL (8.5-10.1) L 12/24/17 07:46 Total Bilirubin 0.6 mg/dL (0.2-1) 12/24/17 07:46 AST 49 U/L (15-37) H 12/24/17 07:46 ALT 54 U/L (13-61) 12/24/17 07:46 Alkaline Phosphatase 36 U/L (45-117) L 12/24/17 07:46 Total Protein 7.0 g/dl (6.4-8.2) 12/24/17 07:46 Albumin 2.7 g/dl (3.4-5.0) L 12/24/17 07:46 Active Medications Generic Name Dose Route Start Last Admin Trade Name Freq PRN Reason Stop Dose Admin Acetaminophen 650 mg 12/21/17 18:20 12/24/17 21:42 Tylenol - PO 650 mg Q6H PRN Administration PAIN LEVEL 7 - 10 Docusate Sodium 100 mg 12/22/17 17:47 12/24/17 21:38 Colace - PO 100 mg BID PRN Administration CONSTIPATION Heparin Sodium (Porcine) 5,000 unit 12/21/17 22:00 12/25/17 09:25 Heparin - SQ 5,000 unit BID KELSI Administration Piperacillin Sod/Tazobactam 50 mls @ 100 mls/hr 12/22/17 02:00 12/25/17 09:25 Sod 3.375 gm/ Dextrose IVPB 100 mls/hr Q8H-IV KELSI Administration Protocol Insulin Aspart 1 vial 12/21/17 16:30 12/25/17 11:14 Novolog Vial Sliding Scale - SQ 6 units ACHS KELSI Administration Protocol Ketorolac Tromethamine 10 mg 12/22/17 00:00 12/25/17 12:09 Toradol PO 12/26/17 00:00 10 mg Q6HPO KELSI Administration Pioglitazone HCl 30 mg 12/22/17 07:00 12/25/17 06:07 Actos - PO 30 mg 0700 KELSI Administration Ramipril 10 mg 12/22/17 10:00 12/25/17 09:26 Altace - PO 10 mg DAILY KELSI Administration Sitagliptin Phosphate 100 mg 12/22/17 07:00 12/25/17 06:07 Januvia - PO 100 mg 0700 KELSI Administration Tamsulosin HCl 0.4 mg 12/22/17 10:00 12/25/17 09:25 Flomax - PO 0.4 mg 0830 KELSI Administration ASSESSMENT/PLAN 72 year-old male with a PMH significant for HTN, NIDDM, and BPH. Admitted for RLE cellulitis. RLE cellulitis --12/21 MRI RLE: extensive cellulitis, no evidence of osteomyelitis --failed course of PO antibiotics --continue Zosyn (day #5) --ID following Hypertension --BP stable --continue ramipril NIDDM --continue oral meds --Novolog sliding scale coverage BPH --continue Flomax FEN Fluids: PO intake adequate Electrolytes: replete as indicated Nutrition: diabetic, low sodium DVT prophylaxis: subq heparin Physical therapy Dispo: continues to require inpatient care. Follow up with podiatry for regular foot care. Discussed at length with patient. Full code. Visit type - Emergency Visit Emergency Visit: Yes ED Registration Date: 12/21/17 Care time: The patient presented to the Emergency Department on the above date and was hospitalized for further evaluation of their emergent condition. - New Patient This patient is new to me today: Yes Date on this admission: 12/25/17 - Critical Care Critical Care patient: No
[2017-12-25] MEDS: ACETAMINOPHEN 325 MG TABLET (FP) PO PRN (20:50)
[2017-12-25] MEDS: DOCUSATE SODIUM 100 MG CAPSULE (FP) PO PRN (21:00)
[2017-12-26] MEDS: KETOROLAC TROMETHAMINE 10 MG TABLET PO SCH
[2017-12-26] MEDS ORDERED: DEXTROSE 5%-WATER - 50 ML IVPB ONE ×3 (00:57→17:57)
[2017-12-26] MEDS ORDERED: PIPERACILLIN/TAZOBACTAM 3.375 GM VIAL IVPB ONE ×3 (00:57→17:56)
[2017-12-26] MEDS: PIPERACILLIN/TAZOB 3.375 GM 3.375 GM in DEXTROSE 5%-WATER - 50 ML IVPB SCH ×3 (02:44→18:00)
[2017-12-26] MEDS: PIOGLITAZONE HCL 30 MG TABLET (FP) PO SCH (06:17)
[2017-12-26] MEDS: sitaGLIPtin PHOSPHATE 100 MG TABLET (FP) PO SCH (06:17)
[2017-12-26] MEDS: INSULIN SLIDING SCALE (NOVOLOG) 1 VIAL SQ SCH ×4 (06:18→21:10)
[2017-12-26] MEDS: ACETAMINOPHEN 325 MG TABLET (FP) PO PRN ×2 (06:18→21:06)
[2017-12-26] MEDS: RAMIPRIL 5 MG CAPSULE (FP) PO SCH (09:47)
[2017-12-26] MEDS: HEPARIN NA (PORCINE) 5,000 UNITS/ML 1ML VIAL SQ SCH ×2 (09:47→21:06)
[2017-12-26] MEDS: TAMSULOSIN HCL 0.4 MG CAP.ER.24H (FP) PO SCH (09:49)
--- NOTE | 2017-12-26 15:26 | PN ---
Progress Note, Physician History of Present Illness: patient leg looks worse than yesterday again swelling has increased - Current Medication List Current Medications: Active Medications Acetaminophen (Tylenol -) 650 mg PO Q6H PRN PRN Reason: PAIN LEVEL 7 - 10 Last Admin: 12/26/17 06:18 Dose: 650 mg Docusate Sodium (Colace -) 100 mg PO BID PRN PRN Reason: CONSTIPATION Last Admin: 12/25/17 21:00 Dose: 100 mg Heparin Sodium (Porcine) (Heparin -) 5,000 unit SQ BID [facility] Last Admin: 12/26/17 09:47 Dose: 5,000 unit Piperacillin Sod/Tazobactam (Sod 3.375 gm/ Dextrose) 50 mls @ 100 mls/hr IVPB Q8H-IV [facility]; Protocol Last Admin: 12/26/17 09:49 Dose: 100 mls/hr Insulin Aspart (Novolog Vial Sliding Scale -) 1 vial SQ ACHS [facility]; Protocol Last Admin: 12/26/17 11:02 Dose: 4 units Pioglitazone HCl (Actos -) 30 mg PO 0700 [facility] Last Admin: 12/26/17 06:17 Dose: 30 mg Ramipril (Altace -) 10 mg PO DAILY [facility] Last Admin: 12/26/17 09:47 Dose: 10 mg Sitagliptin Phosphate (Januvia -) 100 mg PO 0700 [facility] Last Admin: 12/26/17 06:17 Dose: 100 mg Tamsulosin HCl (Flomax -) 0.4 mg PO 0830 [facility] Last Admin: 12/26/17 09:49 Dose: 0.4 mg - Objective Vital Signs: Vital Signs Temperature 99 F 12/26/17 14:20 Pulse Rate 79 12/26/17 14:20 Respiratory Rate 20 12/26/17 09:00 Blood Pressure 142/72 12/26/17 14:20 O2 Sat by Pulse Oximetry (%) 98 12/25/17 21:00 Constitutional: Yes: No Distress, Calm Cardiovascular: Yes: Regular Rate and Rhythm Respiratory: Yes: Regular Gastrointestinal: Yes: Normal Bowel Sounds, Soft Musculoskeletal: Yes: WNL Extremities: Yes: Other (swelling of the leg) Neurological: Yes: Alert, Oriented Psychiatric: Yes: Alert, Oriented Labs: CBC, BMP 12/24/17 07:46 12/24/17 07:46 INR, PTT INR 1.08 (0.83-1.09) 12/21/17 13:20 Assessment/Plan cellulittis of the rt leg htn dm swelling of the rt leg pain plan continue abx elevation of the leg rest as per the team patient improving erythema has improved swelling has not will see how the leg behaves i think patient is not keeping his leg elevated
[2017-12-26] MEDS ORDERED: INSULIN (NOVOLOG) ASPART 100 UNITS/ML 10ML VIAL ONE ×2 (16:19→21:10)
--- NOTE | 2017-12-26 17:44 | PN ---
Physical Exam: SUBJECTIVE: Patient seen and examined at bedside. Feels his right leg is much more swollen. OBJECTIVE: Vital Signs Period Temp Pulse Resp BP Sys/Lambert Pulse Ox Last 24 Hr 98.2 F-99 F 71-95 18-21 142-159/72-77 98 GENERAL: The patient is awake, alert, and fully oriented, in no acute distress. LUNGS: Breath sounds equal, clear to auscultation bilaterally, no wheezes, no crackles, no accessory muscle use. HEART: Regular rate and rhythm, S1, S2 ABDOMEN: Soft, nontender, nondistended RIGHT LOWER EXTREMITY: worsening erythema, 4+ pitting, tense edema with new tiny emerging fluid-filled blisters LEFT LOWER EXTREMITY: new 3+pitting pedal edema NEUROLOGICAL: Cranial nerves II through XII grossly intact. Normal speech, gait not observed. CBCD WBC 5.8 K/mm3 (4.0-10.0) 12/24/17 07:46 RBC 4.03 M/mm3 (4.00-5.60) 12/24/17 07:46 Hgb 11.9 GM/dL (11.7-16.9) 12/24/17 07:46 Hct 36.0 % (35.4-49) 12/24/17 07:46 MCV 89.3 fl (80-96) 12/24/17 07:46 MCHC 33.0 g/dl (32.0-35.9) 12/24/17 07:46 RDW 13.0 % (11.9-15.9) 12/24/17 07:46 Plt Count 255 K/MM3 (134-434) 12/24/17 07:46 MPV 7.0 fl (7.5-11.1) L 12/24/17 07:46 CMP Sodium 134 mmol/L (136-145) L 12/24/17 07:46 Potassium 4.5 mmol/L (3.5-5.1) 12/24/17 07:46 Chloride 102 mmol/L (98-107) 12/24/17 07:46 Carbon Dioxide 25 mmol/L (21-32) 12/24/17 07:46 Anion Gap 7 MMOL/L (8-16) L 12/24/17 07:46 BUN 17 mg/dL (7-18) 12/24/17 07:46 Creatinine 1.2 mg/dL (0.55-1.3) 12/24/17 07:46 Creat Clearance w eGFR 59.68 (>60) 12/24/17 07:46 Calcium 8.4 mg/dL (8.5-10.1) L 12/24/17 07:46 Total Bilirubin 0.6 mg/dL (0.2-1) 12/24/17 07:46 AST 49 U/L (15-37) H 12/24/17 07:46 ALT 54 U/L (13-61) 12/24/17 07:46 Alkaline Phosphatase 36 U/L (45-117) L 12/24/17 07:46 Total Protein 7.0 g/dl (6.4-8.2) 12/24/17 07:46 Albumin 2.7 g/dl (3.4-5.0) L 12/24/17 07:46 Active Medications Generic Name Dose Route Start Last Admin Trade Name Freq PRN Reason Stop Dose Admin Acetaminophen 650 mg 12/21/17 18:20 12/26/17 06:18 Tylenol - PO 650 mg Q6H PRN Administration PAIN LEVEL 7 - 10 Docusate Sodium 100 mg 12/22/17 17:47 12/25/17 21:00 Colace - PO 100 mg BID PRN Administration CONSTIPATION Heparin Sodium (Porcine) 5,000 unit 12/21/17 22:00 12/26/17 09:47 Heparin - SQ 5,000 unit BID KELSI Administration Piperacillin Sod/Tazobactam 50 mls @ 100 mls/hr 12/22/17 02:00 12/26/17 09:49 Sod 3.375 gm/ Dextrose IVPB 100 mls/hr Q8H-IV KELSI Administration Protocol Insulin Aspart 1 vial 12/21/17 16:30 12/26/17 16:26 Novolog Vial Sliding Scale - SQ 2 units ACHS KELSI Administration Protocol Pioglitazone HCl 30 mg 12/22/17 07:00 12/26/17 06:17 Actos - PO 30 mg 0700 KELSI Administration Ramipril 10 mg 12/22/17 10:00 12/26/17 09:47 Altace - PO 10 mg DAILY KELSI Administration Sitagliptin Phosphate 100 mg 12/22/17 07:00 12/26/17 06:17 Januvia - PO 100 mg 0700 KELSI Administration Tamsulosin HCl 0.4 mg 12/22/17 10:00 12/26/17 09:49 Flomax - PO 0.4 mg 0830 KELSI Administration ASSESSMENT/PLAN 72 year-old male with a PMH significant for HTN, NIDDM, and BPH. Admitted for RLE cellulitis. RLE cellulitis --12/21 MRI RLE: extensive cellulitis, no evidence of osteomyelitis --worsening erythema and swelling in RLE and new pedal edema in LLE; emerging blisters on RLE; xray pending --keep legs elevated; compression wrappings --continue Zosyn (day #5) --ID following Bilateral lower extremity edema --significantly worse today --weight jumped 5kg in 24 hours, 7kg since admission (dietary noncompliance? v. undiagnosed HF?) --BNP --Echo Hypertension --BP elevated in setting of new fluid overload in b/l LE --increase ramipril to 20mg --consider diuretic NIDDM --continue oral meds --Novolog sliding scale coverage BPH --continue Flomax FEN Fluids: PO intake adequate Electrolytes: replete as indicated Nutrition: diabetic, low sodium DVT prophylaxis: subq heparin Physical therapy Dispo: continues to require inpatient care. Full code. Visit type - Emergency Visit Emergency Visit: Yes ED Registration Date: 12/21/17 Care time: The patient presented to the Emergency Department on the above date and was hospitalized for further evaluation of their emergent condition. - New Patient This patient is new to me today: No - Critical Care Critical Care patient: No
[2017-12-26] MEDS: DOCUSATE SODIUM 100 MG CAPSULE (FP) PO PRN (21:07)
--- NOTE | 2017-12-26 21:18 | PN ---
Progress Note (short form) - Note Progress Note: FUV patient right leg and foot. Seen in bed with present around 4:45pm. +cellulitis right foot, +edema right leg with erythema, -tender, cellulitis right foot and leg Discussed with ID. CBC with diff. Abx changed as per ID. Will follow. No abscess on MRI. No drainage. present throughout visit. Problem List - Problems (1) Cellulitis Code(s): L03.90 - CELLULITIS, UNSPECIFIED Qualifiers: Site of cellulitis: extremity Site of cellulitis of extremity: lower extremity Laterality: right Qualified Code(s): L03.115 - Cellulitis of right lower limb
[2017-12-26] MEDS ORDERED: MELATONIN 5 MG TABLETS PO ONE (22:49)
[2017-12-27] MEDS ORDERED: DEXTROSE 5%-WATER - 50 ML IVPB ONE ×2 (00:27→10:21)
[2017-12-27] MEDS ORDERED: PIPERACILLIN/TAZOBACTAM 3.375 GM VIAL IVPB ONE ×2 (00:27→10:21)
[2017-12-27] MEDS: PIPERACILLIN/TAZOB 3.375 GM 3.375 GM in DEXTROSE 5%-WATER - 50 ML IVPB SCH ×2 (02:36→11:01)
[2017-12-27] MEDS ORDERED: PT OWN MED DRAWER 7, Y5N ONE (05:46)
[2017-12-27] MEDS: PIOGLITAZONE HCL 30 MG TABLET (FP) PO SCH (06:08)
[2017-12-27] MEDS: sitaGLIPtin PHOSPHATE 100 MG TABLET (FP) PO SCH (06:08)
[2017-12-27] MEDS: ACETAMINOPHEN 325 MG TABLET (FP) PO PRN ×2 (06:08→21:20)
[2017-12-27] MEDS: INSULIN SLIDING SCALE (NOVOLOG) 1 VIAL SQ SCH ×4 (06:09→21:21)
[2017-12-27 07:06] LABS: BASO % 0.7 % (0-2.0); EOS % 1.5 % (0-4.5); HEMATOCRIT 37.2 % (35.4-49); HEMOGLOBIN 12.4 GM/dL (11.7-16.9); LYMPH % 20.7 % (8-40); MCH 29.6 pg (25.7-33.7); MCHC 33.3 g/dl (32.0-35.9); MEAN CELL VOLUME 88.8 fl (80-96); MEAN PLT VOLUME 6.6 fl (7.5-11.1); MONO % 8.8 % (3.8-10.2); NEUT % 68.3 % (42.8-82.8); PLATELET COUNT 304 K/MM3 (134-434); RBC 4.19 M/mm3 (4.00-5.60); RDW 12.8 % (11.9-15.9); WHITE BLOOD COUNT 7.5 K/mm3 (4.0-10.0)
[2017-12-27 07:44] LABS: ANION GAP 8 MMOL/L (8-16); BLOOD UREA NITROGEN 12 mg/dL (7-18); CHLORIDE 105 mmol/L (98-107); CO2 25 mmol/L (21-32); CREATININE 1.1 mg/dL (0.55-1.3); GLUCOSE,RANDOM 144 mg/dL (74-106); POTASSIUM 4.7 mmol/L (3.5-5.1); SODIUM 138 mmol/L (136-145)
[2017-12-27] MEDS: TAMSULOSIN HCL 0.4 MG CAP.ER.24H (FP) PO SCH (08:40)
[2017-12-27] MEDS ORDERED: FUROSEMIDE 40 MG/4 ML INJECTABLE VIAL IVPUSH ONE (09:04)
--- NOTE | 2017-12-27 10:15 | PN ---
Physical Exam: SUBJECTIVE: Patient seen and examined OBJECTIVE: Vital Signs Period Temp Pulse Resp BP Sys/Lambert Pulse Ox Last 24 Hr 98.4 F-99 F 76-84 20-20 142-146/72-74 97 Laboratory Results - last 24 hr 12/26/17 12/26/17 12/26/17 10:59 16:17 21:05 WBC RBC Hgb Hct MCV MCH MCHC RDW Plt Count MPV Absolute Neuts (auto) Neutrophils % Lymphocytes % Monocytes % Eosinophils % Basophils % Nucleated RBC % Sodium Potassium Chloride Carbon Dioxide Anion Gap BUN Creatinine Creat Clearance w eGFR POC Glucometer 235 196 193 Random Glucose Calcium Magnesium B-Natriuretic Peptide 12/27/17 12/27/17 12/27/17 06:02 06:23 06:23 WBC 7.5 RBC 4.19 Hgb 12.4 Hct 37.2 MCV 88.8 MCH 29.6 MCHC 33.3 RDW 12.8 Plt Count 304 MPV 6.6 L Absolute Neuts (auto) 5.1 Neutrophils % 68.3 Lymphocytes % 20.7 Monocytes % 8.8 Eosinophils % 1.5 Basophils % 0.7 Nucleated RBC % 0 Sodium 138 Potassium 4.7 Chloride 105 Carbon Dioxide 25 Anion Gap 8 BUN 12 Creatinine 1.1 Creat Clearance w eGFR > 60 POC Glucometer 142 Random Glucose 144 H Calcium 9.0 Magnesium 2.0 B-Natriuretic Peptide 12/27/17 06:23 WBC RBC Hgb Hct MCV MCH MCHC RDW Plt Count MPV Absolute Neuts (auto) Neutrophils % Lymphocytes % Monocytes % Eosinophils % Basophils % Nucleated RBC % Sodium Potassium Chloride Carbon Dioxide Anion Gap BUN Creatinine Creat Clearance w eGFR POC Glucometer Random Glucose Calcium Magnesium B-Natriuretic Peptide 1373.7 H Active Medications Generic Name Dose Route Start Last Admin Trade Name Freq PRN Reason Stop Dose Admin Acetaminophen 650 mg 12/21/17 18:20 12/27/17 06:08 Tylenol - PO 650 mg Q6H PRN Administration PAIN LEVEL 7 - 10 Docusate Sodium 100 mg 12/22/17 17:47 12/26/17 21:07 Colace - PO 100 mg BID PRN Administration CONSTIPATION Heparin Sodium (Porcine) 5,000 unit 12/21/17 22:00 12/26/17 21:06 Heparin - SQ 5,000 unit BID KELSI Administration Piperacillin Sod/Tazobactam 50 mls @ 100 mls/hr 12/22/17 02:00 12/27/17 02:36 Sod 3.375 gm/ Dextrose IVPB 100 mls/hr Q8H-IV KELSI Administration Protocol Insulin Aspart 1 vial 12/21/17 16:30 12/27/17 06:09 Novolog Vial Sliding Scale - SQ Not Given ACHS KELSI Protocol Pioglitazone HCl 30 mg 12/22/17 07:00 12/27/17 06:08 Actos - PO 30 mg 0700 KELSI Administration Ramipril 20 mg 12/27/17 10:00 Altace - PO DAILY KELSI Sitagliptin Phosphate 100 mg 12/22/17 07:00 12/27/17 06:08 Januvia - PO 100 mg 0700 KELSI Administration Tamsulosin HCl 0.4 mg 12/22/17 10:00 12/27/17 08:40 Flomax - PO 0.4 mg 0830 KELSI Administration ASSESSMENT/PLAN:
[2017-12-27] MEDS: HEPARIN NA (PORCINE) 5,000 UNITS/ML 1ML VIAL SQ SCH ×2 (11:02→21:22)
[2017-12-27] MEDS: RAMIPRIL 5 MG CAPSULE (FP) PO SCH (11:02)
--- NOTE | 2017-12-27 12:03 | ECHO ---
Name: BETTINA TAYLOR Exam:Adult Echocardiogram Study Date: 12/27/2017 10:17 AM Age: 72 yrs Reason For Study: EDEMA Height: 70 in Weight: 254 lb BSA: 2.3 m2 MMode/2D Measurements & Calculations IVSd: 1.0 cm Ao root diam: 2.8 cm LVIDd: 4.5 cm LA dimension: 4.3 cm LVIDs: 3.2 cm LVPWd: 0.85 cm EDV(Teich): 91.2 ml ESV(Teich): 39.9 ml Doppler Measurements & Calculations MV E max shaw: 96.3 cm/sec MR max shaw: 232.1 cm/sec MV A max shaw: 83.9 cm/sec MR max P.6 mmHg MV E/A: 1.1 MV dec time: 0.17 sec TR max shaw: 155.4 cm/sec Med Peak E' Shaw: 9.3 cm/sec TR max P.7 mmHg Med E/e': 10.4 Lat Peak E' Shaw: 5.8 cm/sec Lat E/e': 16.7 Procedure The study was technically difficult with many images being suboptimal in quality. Left Ventricle Left ventricular systolic function is grossly normal. Regional wall motion abnormalities cannot be ex cluded due to limited visualization. Right Ventricle The right ventricle is grossly normal size. The right ventricular systolic function is grossly normal . Atria The left atrium is mildly dilated. Mitral Valve Calcified mitral apparatus. There is no mitral valve stenosis. Tricuspid Valve The tricuspid valve is not well visualized, but is grossly normal. There is mild tricuspid regurgitat ion. Aortic Valve There is mild aortic sclerosis.;. No hemodynamically significant valvular aortic stenosis. No aortic regurgitation is present. Pulmonic Valve The pulmonic valve is not well seen, but is grossly normal. Great Vessels The aortic root is normal size. Pericardium/Pleura Small pericardial effusion (<1cm). There are no echocardiographic indications of cardiac tamponade. Interpretation Summary The study was technically difficult with many images being suboptimal in quality. Regional wall motion abnormalities cannot be excluded due to limited visualization. Left ventricular systolic function is grossly normal. Small pericardial effusion (<1cm) The left atrium is mildly dilated. Calcified mitral apparatus. There is mild tricuspid regurgitation. There is mild aortic sclerosis.; MD Tyrese Paris 12/27/2017 12:02 PM
--- NOTE | 2017-12-27 14:00 | PN ---
Progress Note, Physician History of Present Illness: stable doing better swelling has improved patient got lasix - Current Medication List Current Medications: Active Medications Acetaminophen (Tylenol -) 650 mg PO Q6H PRN PRN Reason: PAIN LEVEL 7 - 10 Last Admin: 12/27/17 06:08 Dose: 650 mg Docusate Sodium (Colace -) 100 mg PO BID PRN PRN Reason: CONSTIPATION Last Admin: 12/26/17 21:07 Dose: 100 mg Heparin Sodium (Porcine) (Heparin -) 5,000 unit SQ BID [facility] Last Admin: 12/27/17 11:02 Dose: 5,000 unit Insulin Aspart (Novolog Vial Sliding Scale -) 1 vial SQ [facility]; Protocol Last Admin: 12/27/17 06:09 Dose: Not Given Pioglitazone HCl (Actos -) 30 mg PO 0700 [facility] Last Admin: 12/27/17 06:08 Dose: 30 mg Ramipril (Altace -) 20 mg PO DAILY [facility] Last Admin: 12/27/17 11:02 Dose: 20 mg Sitagliptin Phosphate (Januvia -) 100 mg PO 0700 [facility] Last Admin: 12/27/17 06:08 Dose: 100 mg Tamsulosin HCl (Flomax -) 0.4 mg PO 0830 [facility] Last Admin: 12/27/17 08:40 Dose: 0.4 mg - Objective Vital Signs: Vital Signs Temperature 98.7 F 12/27/17 06:00 Pulse Rate 86 12/27/17 10:00 Respiratory Rate 18 12/27/17 10:00 Blood Pressure 168/90 12/27/17 10:00 O2 Sat by Pulse Oximetry (%) 97 12/26/17 20:11 Constitutional: Yes: No Distress, Calm Cardiovascular: Yes: Regular Rate and Rhythm Respiratory: Yes: Regular, CTA Bilaterally Gastrointestinal: Yes: Normal Bowel Sounds, Soft Musculoskeletal: Yes: Other Extremities: Yes: Erythema (improved), Other (swelling still present) Neurological: Yes: Alert, Oriented Psychiatric: Yes: Alert, Oriented Labs: CBC, BMP 12/27/17 06:23 12/27/17 06:23 INR, PTT INR 1.08 (0.83-1.09) 12/21/17 13:20 Assessment/Plan cellulittis of the rt leg htn dm swelling of the rt leg pain plan will stop abx continue diuresis if needed elevation of the leg rest as per the team patient improving erythema has improved swelling has not will see how patient does off of abx
--- NOTE | 2017-12-27 14:33 | CON.CARD ---
Cardiology Consult (text) - Consultation Consultation Note: Consult Dictated IMP: 1. Type 2 DM 2. LE cellulitis 3. Possible diastolic dysfx, without overt/decompensated CHF 4. LE edema- more likely on the basis of chronic venous insuffiency and soft tissue edema secondary to cellulitis 5. Spurious weight gain recordings 6. Elevated BNP out of proportion to clinical exam- may represent chronic elevation in setting diastolic dysfx 7.Murmur of TR 8. Possible right carotid bruit REC: 1. Rx cellulitis as per ID 2. High intensity statin is contraindicated due to previous hx of statin induced transaminitis 3. Would consider and have suggested low dose ASA as DM is a CAD risk equivalent 4. Continuation of ASHLYN-I for chronic HTN/DM- has been on for years for renoprotective benefits 5. Daily weights with same scale 6. Low sodium diet 7. Leg elevation, consider compression stockings for venous insufficiency 8. Unclear if he will need daily furosemide, needs close outpatient follow up. 9. Recommended outpatient stress test for risk stratification. 10. Carotid US. Thank you.
--- NOTE | 2017-12-27 15:45 | CONS ---
DATE OF CONSULTATION: 12/27/2017 CARDIOLOGY CONSULTATION REQUESTING PHYSICIAN: Donna Roberts N.P. REASON FOR CONSULTATION: Lower extremity edema and evaluation for possible congestive heart failure. HISTORY OF PRESENT ILLNESS: The patient is a 72-year-old male with diabetes and chronic hypertension who was admitted on December 21 after 1 week of progressive right lower extremity erythema. Patient also developed chills approximately 1 week prior to presentation and was treated by his outpatient primary medical doctor with a course of oral antibiotics. As there was no improvement and possibly worsening of the right lower extremity edema, he was admitted to the hospital on December 21 for intravenous antibiotics and for the workup. He was seen by infectious disease and started on IV antibiotics, blood cultures are negative. Right lower extremity duplex ultrasound was negative. During the course of his admission it was noted that his weight had increased, prompting the medical team to obtain a BNP level, which was also elevated at slightly over 1000. The patient was seen and examined at the bedside in no acute distress. He describes regular exercise at the gym aerobically 4 days per week with no limitation in his exercise capacity. He denies exertional chest pain, shortness of breath, dizziness, lightheadedness, or syncope. He does snore but attributes this to his deviated septum. He has no symptoms of PND or orthopnea. He does endorse chronic lower extremity edema around the level of the ankle, worse at night. He had a prior bout of cellulitis in the left leg many years ago after walking around with no socks. The patient had a stress test performed as an outpatient approximately 5 years ago that he reports as unremarkable and has had no previous coronary revascularization and has not been hospitalized for cardiac reasons. PAST MEDICAL HISTORY: As above. ALLERGIES: None. PRIOR SURGERIES: Nephrolithiasis, stone removal. MEDICATION: Current medications include Tylenol 650 p.o. q.6 p.r.n., Colace 100 mg p.o. b.i.d., subcutaneous heparin 5000 units b.i.d. for prophylaxis, NovoLog sliding scale, pioglitazone 30 mg p.o. daily, ramipril 20 mg p.o. daily, sitagliptin 100 mg p.o. daily, and tamsulosin 0.4 mg p.o. daily. FAMILY HISTORY: Both his parents had coronary disease as a result of chronic diabetes. SOCIAL HISTORY: Former smoker with no history of COPD. . Denies alcohol or illicit drug use. Lives with his . PHYSICAL EXAMINATION: GENERAL: Comfortable, no distress. VITAL SIGNS: Afebrile now at 98.7, pulse of 86, blood pressure between 140 to 168 over 90. The patient reports that the scale they had been using to weigh him have been inaccurate and not showed a 20-pound weight gain. The patient insisted that he be re-weighed this morning, and the scale showed 240 pounds, consistent with his previous weight, and indicating a 20-pound weight drop from yesterday, clearly inaccurate. NECK: There is no visible jugulovenous distention with the patient sitting upright. HEART: The heart was regular with a systolic murmur at the right sternal border that increases with inspiration consistent with tricuspid regurgitation. CHEST: Clear bilaterally with no rales. ABDOMEN: Obese but soft and nontender. EXTREMITIES: Demonstrated edema, 1 to 2+ bilaterally to the mid levy with the right lower extremity being erythematous, consistent with cellulitis. There is overlying venous stasis changes and hyperemia consistent with venous stasis. Blood cultures are negative. LABORATORY: CBC: White count 7.5, hematocrit 37.2, platelets 304. INR normal. Sodium 138, potassium 4.7, creatinine 1.1, BUN 1300. Urinalysis: 3+ glucose, otherwise negative. EKG on presentation on December 21 showed normal sinus rhythm at 77 beats per minute with no acute ST-T changes. MRI has shown no evidence of osteomyelitis. IMPRESSION: 1. Type 2 diabetes. 2. Lower extremity cellulitis. 3. Possible diastolic dysfunction without overt decompensated congestive heart failure. 4. Lower extremity edema: More likely on the basis of chronic venous insufficiency and soft tissue edema secondary to cellulitis. 5. Probable spurious weight gain recordings. 6. Elevated BNP out of proportion to clinical examination: May represent chronic elevation in the setting of diastolic dysfunction. 7. Murmur or tricuspid regurgitation. 8. Possible right carotid bruit. RECOMMENDATION: 1. Treatment of cellulitis as per ID. 2. Patient risk factor profile would warrant use of either moderate or high-dose statin, however it is contraindicated due to his previous history of statin induced transaminase. 3. Would consider and have suggested to him the addition of a low-dose aspirin, as diabetes is a coronary disease risk equivalent. 4. Continuation of the ASHLYN inhibitor for chronic hypertension and diabetes--he has been on it for years for its renoprotective benefits. 5. Daily weights with the same scale. 6. Low sodium diet, less than 2 g. 7. Leg elevation, would also consider compression stockings for venous insufficiency. 8. It is unclear at this time if he will need daily Lasix, he will need close outpatient followup to determine this. 9. An outpatient stress test is recommended for further risk stratification. 10. A carotid ultrasound will be obtained to evaluate the possible right carotid bruit. 11. Lastly, would strongly consider discontinuation of pioglitazone as it is associated with fluid retention and CHF. Thank you for the consultation. JONATHAN MATOS M.D. DAVID/[id number]
[2017-12-27] MEDS ORDERED: INSULIN (NOVOLOG) ASPART 100 UNITS/ML 10ML VIAL ONE (20:56)
[2017-12-27] MEDS: DOCUSATE SODIUM 100 MG CAPSULE (FP) PO PRN (21:21)
[2017-12-27] MEDS ORDERED: MELATONIN 5 MG TABLETS PO ONE (21:31)
[2017-12-28] MEDS: ACETAMINOPHEN 325 MG TABLET (FP) PO PRN ×2 (04:18→17:08)
[2017-12-28] MEDS ORDERED: PT OWN MED DRAWER 7, Y5N ONE (06:21)
[2017-12-28] MEDS: INSULIN SLIDING SCALE (NOVOLOG) 1 VIAL SQ SCH ×4 (06:27→21:57)
[2017-12-28] MEDS: PIOGLITAZONE HCL 30 MG TABLET (FP) PO SCH (06:32)
[2017-12-28] MEDS: sitaGLIPtin PHOSPHATE 100 MG TABLET (FP) PO SCH (06:32)
[2017-12-28] MEDS: TAMSULOSIN HCL 0.4 MG CAP.ER.24H (FP) PO SCH (09:04)
[2017-12-28] MEDS: ASPIRIN 81 MG CHEWABLE TABLETS PO SCH (09:04)
[2017-12-28] MEDS: RAMIPRIL 5 MG CAPSULE (FP) PO SCH (09:09)
--- NOTE | 2017-12-28 10:07 | PN ---
Progress Note, Physician Chief Complaint: Seen and examined Ambulating halls, denies SOB or PND - Current Medication List Current Medications: Active Medications Acetaminophen (Tylenol -) 650 mg PO Q6H PRN PRN Reason: PAIN LEVEL 7 - 10 Last Admin: 12/28/17 04:18 Dose: 650 mg Aspirin (Asa -) 81 mg PO DAILY [facility] Docusate Sodium (Colace -) 100 mg PO BID PRN PRN Reason: CONSTIPATION Last Admin: 12/27/17 21:21 Dose: 100 mg Heparin Sodium (Porcine) (Heparin -) 5,000 unit SQ BID [facility] Last Admin: 12/27/17 21:22 Dose: 5,000 unit Insulin Aspart (Novolog Vial Sliding Scale -) 1 vial SQ ACHS [facility]; Protocol Last Admin: 12/28/17 06:27 Dose: 2 units Pioglitazone HCl (Actos -) 30 mg PO 0700 [facility] Last Admin: 12/28/17 06:32 Dose: 30 mg Ramipril (Altace -) 20 mg PO DAILY [facility] Last Admin: 12/28/17 09:09 Dose: 20 mg Sitagliptin Phosphate (Januvia -) 100 mg PO 0700 [facility] Last Admin: 12/28/17 06:32 Dose: 100 mg Tamsulosin HCl (Flomax -) 0.4 mg PO 0830 [facility] Last Admin: 12/28/17 09:04 Dose: 0.4 mg - Objective Vital Signs: Vital Signs Temperature 98.4 F 12/28/17 06:27 Pulse Rate 78 12/28/17 06:27 Respiratory Rate 20 12/28/17 06:27 Blood Pressure 155/76 12/28/17 06:27 O2 Sat by Pulse Oximetry (%) 97 12/27/17 21:00 Constitutional: Yes: No Distress, Calm Eyes: Yes: Conjunctiva Clear HENT: Yes: Other (NO JVD) Cardiovascular: Yes: Regular Rate and Rhythm Respiratory: Yes: CTA Bilaterally Gastrointestinal: Yes: Soft, Abdomen, Obese Edema: Yes Edema: LLE: 1+, RLE: 2+ Neurological: Yes: Alert Labs: CBC, BMP 12/27/17 06:23 12/27/17 06:23 INR, PTT INR 1.08 (0.83-1.09) 12/21/17 13:20 - ....Imaging Ultrasound: Report Reviewed Assessment/Plan IMP: 1. Type 2 DM 2. LE cellulitis 3. Suspected diastolic dysfx, without overt/decompensated CHF 4. LE edema- more likely on the basis of chronic venous insuffiency and soft tissue edema secondary to cellulitis 5. Spurious weight gain recordings 6. Elevated BNP out of proportion to clinical exam- may represent chronic elevation in setting diastolic dysfx 7. Murmur of TR 8. LICA stenosis, 70% REC: 1. Rx cellulitis as per ID 2. High intensity statin is contraindicated due to previous hx of statin induced transaminitis 3. ASA 81mg daily- for LICA stenosis/ DM (CAD risk equivalent). 4. Continuation of ASHLYN-I for chronic HTN/DM- has been on for years for renoprotective benefits 5. Daily weights with same scale 6. Low sodium diet 7. Leg elevation, consider compression stockings for venous insufficiency 8. Unclear if he will need daily furosemide, needs close outpatient follow up. 9. Recommended outpatient stress test for risk stratification. 10. Carotid US noted and d/w patient: 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 Starting ASA. Consider CTA. Surgery generally reserved for asx disease >80% 11. Would d/c Pioglitazone, associated with fluid retention and CHF- substitute another agent. Has had adverse reactions to Metormin in past.
[2017-12-28] MEDS: HEPARIN NA (PORCINE) 5,000 UNITS/ML 1ML VIAL SQ SCH (10:41)
--- NOTE | 2017-12-28 12:47 | PN ---
Progress Note (short form) - Note Progress Note: FUV patient right leg and foot. Seen in bed with present. +resolved cellulitis right foot, +edema right leg with erythema from ankle to mid leg right -tender, +improved edema, wbc=7.5 erythema right leg improved right foot present throughout visit. Continue abx as per ID. Will follow. Problem List - Problems (1) Cellulitis Code(s): L03.90 - CELLULITIS, UNSPECIFIED Qualifiers: Site of cellulitis: extremity Site of cellulitis of extremity: lower extremity Laterality: right Qualified Code(s): L03.115 - Cellulitis of right lower limb
--- NOTE | 2017-12-28 18:03 | PN ---
Progress Note, Physician History of Present Illness: Pt with RLE swelling. Erythema/warmth/edema persists. Occasional leg cramping but no severe tenderness. No other specific complaints offered. - Current Medication List Current Medications: Active Medications Acetaminophen (Tylenol -) 650 mg PO Q6H PRN PRN Reason: PAIN LEVEL 7 - 10 Last Admin: 12/28/17 17:08 Dose: 650 mg Aspirin (Asa -) 81 mg PO DAILY [facility] Last Admin: 12/28/17 09:04 Dose: 81 mg Docusate Sodium (Colace -) 100 mg PO BID PRN PRN Reason: CONSTIPATION Last Admin: 12/27/17 21:21 Dose: 100 mg Heparin Sodium (Porcine) (Heparin -) 5,000 unit SQ BID [facility] Last Admin: 12/28/17 10:41 Dose: 5,000 unit Insulin Aspart (Novolog Vial Sliding Scale -) 1 vial SQ [facility]; Protocol Last Admin: 12/28/17 17:04 Dose: 4 units Pioglitazone HCl (Actos -) 30 mg PO 0700 [facility] Last Admin: 12/28/17 06:32 Dose: 30 mg Ramipril (Altace -) 20 mg PO DAILY [facility] Last Admin: 12/28/17 09:09 Dose: 20 mg Sitagliptin Phosphate (Januvia -) 100 mg PO 0700 [facility] Last Admin: 12/28/17 06:32 Dose: 100 mg Tamsulosin HCl (Flomax -) 0.4 mg PO 0830 [facility] Last Admin: 12/28/17 09:04 Dose: 0.4 mg - Objective Vital Signs: Vital Signs Temperature 98.7 F 12/28/17 10:00 Pulse Rate 80 12/28/17 10:00 Respiratory Rate 20 12/28/17 10:00 Blood Pressure 158/89 12/28/17 10:00 O2 Sat by Pulse Oximetry (%) 97 12/27/17 21:00 Constitutional: Yes: No Distress, Calm Cardiovascular: Yes: Regular Rate and Rhythm Respiratory: Yes: Regular Gastrointestinal: Yes: Normal Bowel Sounds, Soft Extremities: Yes: Erythema (RLE) Edema: Yes Edema: LLE: 1+, RLE: 2+ Neurological: Yes: Alert, Oriented Labs: CBC, BMP 12/27/17 06:23 12/27/17 06:23 INR, PTT INR 1.08 (0.83-1.09) 12/21/17 13:20 Problem List - Problems (1) Cellulitis Code(s): L03.90 - CELLULITIS, UNSPECIFIED Qualifiers: Site of cellulitis: extremity Site of cellulitis of extremity: lower extremity Laterality: right Qualified Code(s): L03.115 - Cellulitis of right lower limb (2) Diabetes Code(s): E11.9 - TYPE 2 DIABETES MELLITUS WITHOUT COMPLICATIONS Qualifiers: Diabetes mellitus type: type 2 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
[2017-12-28] MEDS ORDERED: MELATONIN 5 MG TABLETS PO ONE (20:00)
--- NOTE | 2017-12-28 22:03 | PN ---
Physical Exam: SUBJECTIVE: Patient seen and examined. Able to walk up and down hallway. Feels ready to go home. OBJECTIVE: Vital Signs Period Temp Pulse Resp BP Sys/Lambert Pulse Ox Last 24 Hr 97.8 F-98.7 F 78-86 20-20 155-159/75-89 GENERAL: The patient is awake, alert, and fully oriented, in no acute distress. LUNGS: Breath sounds equal, clear to auscultation bilaterally, no wheezes, no crackles, no accessory muscle use. HEART: Regular rate and rhythm, S1, S2 ABDOMEN: Soft, nontender, nondistended RIGHT LOWER EXTREMITY: worsening erythema, 4+ pitting, tense edema with new tiny emerging fluid-filled blisters LEFT LOWER EXTREMITY: new 3+pitting pedal edema NEUROLOGICAL: Cranial nerves II through XII grossly intact. Normal speech, gait not observed. Active Medications Generic Name Dose Route Start Last Admin Trade Name Freq PRN Reason Stop Dose Admin Acetaminophen 650 mg 12/21/17 18:20 12/28/17 17:08 Tylenol - PO 650 mg Q6H PRN Administration PAIN LEVEL 7 - 10 Aspirin 81 mg 12/28/17 10:00 12/28/17 09:04 Asa - PO 81 mg DAILY [facility] Administration Clindamycin HCl 300 mg 12/29/17 18:15 Cleocin - PO Q6HPO [facility] Docusate Sodium 100 mg 12/22/17 17:47 12/27/17 21:21 Colace - PO 100 mg BID PRN Administration CONSTIPATION Heparin Sodium (Porcine) 5,000 unit 12/21/17 22:00 12/28/17 10:41 Heparin - SQ 5,000 unit BID [facility] Administration Insulin Aspart 1 vial 12/21/17 16:30 12/28/17 17:04 Novolog Vial Sliding Scale - SQ 4 units ACHS [facility] Administration Protocol Pioglitazone HCl 30 mg 12/22/17 07:00 12/28/17 06:32 Actos - PO 30 mg 0700 [facility] Administration Ramipril 20 mg 12/27/17 10:00 12/28/17 09:09 Altace - PO 20 mg DAILY [facility] Administration Sitagliptin Phosphate 100 mg 12/22/17 07:00 12/28/17 06:32 Januvia - PO 100 mg 0700 [facility] Administration Tamsulosin HCl 0.4 mg 12/22/17 10:00 12/28/17 09:04 Flomax - PO 0.4 mg 0830 [facility] Administration ASSESSMENT/PLAN 72 year-old male with a PMH significant for HTN, NIDDM, and BPH. Admitted for RLE cellulitis. RLE cellulitis --12/21 MRI RLE: extensive cellulitis, no evidence of osteomyelitis --worsening erythema and swelling in RLE and new pedal edema in LLE; emerging blisters on RLE; xray pending --keep legs elevated; compression wrappings --continue Zosyn (day #5) --ID following Bilateral lower extremity edema --significantly worse today --weight jumped 5kg in 24 hours, 7kg since admission (dietary noncompliance? v. undiagnosed HF?) --BNP --Echo Hypertension --BP elevated in setting of new fluid overload in b/l LE --increase ramipril to 20mg --consider diuretic NIDDM --continue oral meds --Novolog sliding scale coverage BPH --continue Flomax FEN Fluids: PO intake adequate Electrolytes: replete as indicated Nutrition: diabetic, low sodium DVT prophylaxis: subq heparin Physical therapy Dispo: continues to require inpatient care. Full code.
--- NOTE | 2017-12-28 23:00 | CONSULT ---
Consult Consult Specialty:: endocrine Referred by:: dr.[email or web address] loredo Reason for Consultation:: diabetes mellitus - History of Present Illness Chief Complaint: leg reddness swelling and high sugars History of Present Illness: 72 year old male with a significant past medical history of diabetes mellitus 2 , (controlled on 3 oral medications), BPH and hypertension. He presents to the ED with right lower extremity (from knee to right foot) edema, redness pain and fever for the past week. States his pain began last Saturday afternoon when he noted his right leg began to hurt and noted that his right leg was warm to touch , but mostly on the ankle. He noticed that the redness began to advance and was advised to present to ed for iv antibiotics,he stopped smoking many years ago,no nausea vomiting,or diarhea - Past Medical History Endocrine: Yes: Diabetes Mellitus - Alcohol/Substance Use Hx Alcohol Use: No - Smoking History Smoking history: Never smoked Home Medications - Allergies Allergies/Adverse Reactions: Allergies Allergy/AdvReac Type Severity Reaction Status Date / Time No Known Allergies Allergy Verified 12/21/17 12:10 - Home Medications Home Medications: Ambulatory Orders Alfuzosin HCl [Alfuzosin HCl ER] 10 mg PO DAILY 12/21/17 Gardiance 25 mg PO DAILY 12/21/17 Pioglitazone HCl 30 mg PO DAILY 12/21/17 Ramipril [Altace] 50 mg PO DAILY 12/21/17 Sitagliptin Phosphate [Januvia] 100 mg PO DAILY 12/21/17 Review of Systems - Review of Systems Constitutional: reports: Weakness Eyes: reports: No Symptoms HENT: reports: No Symptoms Neck: reports: No Symptoms Cardiovascular: reports: No Symptoms Respiratory: reports: No Symptoms Gastrointestinal: reports: No Symptoms Genitourinary: reports: No Symptoms Musculoskeletal: reports: Extremity Pain, Muscle Cramps, Muscle Weakness Integumentary: reports: No Symptoms Neurological: reports: Numbness Endocrine: reports: Unexplained Weight Gain Physical Exam Vital Signs: Vital Signs Temperature 98.7 F 12/28/17 10:00 Pulse Rate 80 12/28/17 10:00 Respiratory Rate 20 12/28/17 10:00 Blood Pressure 158/89 12/28/17 10:00 O2 Sat by Pulse Oximetry (%) 97 12/28/17 22:00 Constitutional: Yes: Calm Eyes: Yes: EOM Intact HENT: Yes: Normocephalic Neck: Yes: Trachea Midline Cardiovascular: Yes: Regular Rate and Rhythm Respiratory: Yes: CTA Bilaterally Gastrointestinal: Yes: Normal Bowel Sounds ...Rectal Exam: Yes: Deferred Renal/: Yes: WNL Breast(s): Yes: WNL Musculoskeletal: Yes: Joint Swelling Extremities: Yes: Delayed Capillary Refill, Erythema Edema: Yes Edema: LLE: 1+, RLE: 2+ Peripheral Pulses WNL: Yes Integumentary: Yes: Rash, Onychomycosis, Venous Stasis Changes Neurological: Yes: Alert, Oriented Labs: CBC, BMP 12/27/17 06:23 12/27/17 06:23 Problem List - Problems (1) Cellulitis Code(s): L03.90 - CELLULITIS, UNSPECIFIED Qualifiers: Site of cellulitis: extremity Site of cellulitis of extremity: lower extremity Laterality: right Qualified Code(s): L03.115 - Cellulitis of right lower limb (2) Cellulitis of right foot Code(s): L03.115 - CELLULITIS OF RIGHT LOWER LIMB (3) Diabetes Code(s): E11.9 - TYPE 2 DIABETES MELLITUS WITHOUT COMPLICATIONS Qualifiers: Diabetes mellitus type: type 2 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 use: without skilled nursing use Assessment/Plan Current Active Problems Cellulitis (Acute) Cellulitis of right foot (Acute) Diabetes (Acute) diabetes mellitus hyperglycemia diabetic neuropathy Laboratory Results - last 24 hr 12/28/17 12/28/17 12/28/17 06:26 11:16 16:58 POC Glucometer 169 245 205 12/28/17 21:53 POC Glucometer 161 Laboratory Tests 12/22/17 12/27/17 12/27/17 06:00 06:23 06:23 Sodium 138 Potassium 4.7 Chloride 105 Carbon Dioxide 25 Anion Gap 8 BUN 12 Creatinine 1.1 Creat Clearance w eGFR > 60 POC Glucometer Random Glucose 144 H Hemoglobin A1c % 7.4 H B-Natriuretic Peptide 1373.7 H 12/27/17 12/27/17 12/27/17 11:13 16:29 21:14 Sodium Potassium Chloride Carbon Dioxide Anion Gap BUN Creatinine Creat Clearance w eGFR POC Glucometer 222 164 202 Random Glucose Hemoglobin A1c % B-Natriuretic Peptide plan: dc pioglitazone,likely cause of edema elevated bnp use glimiperide 4mg daily januvia 100mg daily bgm qid novolog insulin may benifit from glp1 as outpatient levemir 10 units if sugar over 200mg/dl in am
[2017-12-29] MEDS: ACETAMINOPHEN 325 MG TABLET (FP) PO PRN (01:43)
[2017-12-29] MEDS: sitaGLIPtin PHOSPHATE 100 MG TABLET (FP) PO SCH (06:07)
[2017-12-29] MEDS: INSULIN SLIDING SCALE (NOVOLOG) 1 VIAL SQ SCH ×2 (06:21→11:09)
[2017-12-29] MEDS ORDERED: INSULIN (NOVOLOG) ASPART 100 UNITS/ML 10ML VIAL ONE (06:49)
[2017-12-29] MEDS ORDERED: INSULIN (LEVEMIR) 100 UNITS/ML UNITS SQ SCH (07:00)
[2017-12-29] MEDS ORDERED: GLIMEPIRIDE 4 MG TABLET (FP) PO SCH (07:00)
[2017-12-29] MEDS ORDERED: PT OWN MED DRAWER 7, Y5N ONE (08:53)
[2017-12-29] MEDS: TAMSULOSIN HCL 0.4 MG CAP.ER.24H (FP) PO SCH (08:56)
--- NOTE | 2017-12-29 09:24 | PN ---
Progress Note, Physician Chief Complaint: Seen and examined, no CP or SOB ambulating Appreciate Endo eval and adjustment of oral DM meds: Pioglitazone d/c'd - Current Medication List Current Medications: Active Medications Acetaminophen (Tylenol -) 650 mg PO Q6H PRN PRN Reason: PAIN LEVEL 7 - 10 Last Admin: 12/29/17 01:43 Dose: 650 mg Aspirin (Asa -) 81 mg PO DAILY [facility] Last Admin: 12/28/17 09:04 Dose: 81 mg Clindamycin HCl (Cleocin -) 300 mg PO Q6HPO [facility] Docusate Sodium (Colace -) 100 mg PO BID PRN PRN Reason: CONSTIPATION Last Admin: 12/27/17 21:21 Dose: 100 mg Glimepiride (Amaryl -) 4 mg PO DAILY@0700 [facility] Last Admin: 12/29/17 06:08 Dose: 4 mg Insulin Aspart (Novolog Vial Sliding Scale -) 1 vial SQ [facility]; Protocol Last Admin: 12/29/17 06:21 Dose: 2 units Insulin Detemir (Levemir Vial) 10 units SQ AM [facility] Last Admin: 12/29/17 06:08 Dose: 10 units Ramipril (Altace -) 20 mg PO DAILY [facility] Last Admin: 12/28/17 09:09 Dose: 20 mg Sitagliptin Phosphate (Januvia -) 100 mg PO 0700 [facility] Last Admin: 12/29/17 06:07 Dose: 100 mg Tamsulosin HCl (Flomax -) 0.4 mg PO 0830 [facility] Last Admin: 12/29/17 08:56 Dose: 0.4 mg - Objective Vital Signs: Vital Signs Temperature 98.6 F 12/29/17 06:13 Pulse Rate 88 12/29/17 06:13 Respiratory Rate 20 12/29/17 06:13 Blood Pressure 156/88 12/29/17 06:13 O2 Sat by Pulse Oximetry (%) 97 12/28/17 22:00 Constitutional: Yes: No Distress Cardiovascular: Yes: Regular Rate and Rhythm Respiratory: Yes: CTA Bilaterally Gastrointestinal: Yes: Soft Edema: LLE: 1+, RLE: 1+ (erythema) Neurological: Yes: Alert, Oriented ...Motor Strength: WNL Labs: CBC, BMP 12/27/17 06:23 12/27/17 06:23 INR, PTT INR 1.08 (0.83-1.09) 12/21/17 13:20 Assessment/Plan IMP: 1. Type 2 DM 2. LE cellulitis 3. Suspected diastolic dysfx, without overt/decompensated CHF 4. LE edema- more likely on the basis of chronic venous insuffiency and soft tissue edema secondary to cellulitis 5. Spurious weight gain recordings 6. Elevated BNP out of proportion to clinical exam- may represent chronic elevation in setting diastolic dysfx 7. Murmur of TR 8. LICA stenosis, 70% REC: 1. Rx cellulitis as per ID, back on PO abx 2. High intensity statin is contraindicated due to previous hx of statin induced transaminitis- defer to PMD as outpatient. 3. ASA 81mg daily- for LICA stenosis/ DM (CAD risk equivalent). 4. Continuation of ASHLYN-I for chronic HTN/DM- has been on for years for renoprotective benefits 5. Daily weights at home. 6. Low sodium diet 7. Leg elevation, consider compression stockings for venous insufficiency 8. Unclear if he will need daily furosemide, needs close outpatient follow up. 9. Recommended outpatient stress test for risk stratification. 10. Carotid US noted and d/w patient: 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 Starting ASA. Consider CTA. Surgery generally reserved for asx disease >80% 11. Pioglitazone discontinued because it is associated with fluid retention and CHF. Meds adjusted yesterday by Endocrine, appreciate their evaluation. A call has been placed to his PMD Dr. Lozano to inform him of the changes and the carotid findings, awaiting call back. Patient given my card and advised to f/u w me in 1-2 weeks for further outpt work of carotid stenosis.
[2017-12-29] MEDS: ASPIRIN 81 MG CHEWABLE TABLETS PO SCH (10:10)
[2017-12-29] MEDS: RAMIPRIL 5 MG CAPSULE (FP) PO SCH (10:10)
[2017-12-29] MEDS ORDERED: CLINDAMYCIN HCL 150 MG CAPSULE (FP) PO SCH ×2 (13:04→18:15)
--- NOTE | 2017-12-29 13:52 | DS ---
Physical Exam: SUBJECTIVE: Patient seen and examined OBJECTIVE: Vital Signs Period Temp Pulse Resp BP Sys/Lambert Pulse Ox Last 24 Hr 98.4 F-98.8 F 75-88 20-20 156-161/79-88 97 PHYSICAL EXAM GENERAL: The patient is awake, alert, and fully oriented, in no acute distress. HEAD: Normal with no signs of trauma. EYES: PERRL, extraocular movements intact, sclera anicteric, conjunctiva clear. ENT: Ears normal, nares patent, oropharynx clear without exudates, moist mucous membranes. NECK: Trachea midline, full range of motion, supple. LUNGS: Breath sounds equal, clear to auscultation bilaterally, no wheezes, no crackles, no accessory muscle use. HEART: Regular rate and rhythm, S1, S2 without murmur, rub or gallop. ABDOMEN: Soft, nontender, nondistended, normoactive bowel sounds, no guarding, no rebound, no hepatosplenomegaly, no masses. EXTREMITIES: 2+ pulses, warm, well-perfused, no edema. NEUROLOGICAL: Cranial nerves II through XII grossly intact. Normal speech, gait not observed. PSYCH: Normal mood, normal affect. SKIN: Warm, dry, normal turgor, no rashes or lesions noted. LABS Laboratory Results - last 24 hr 12/28/17 12/28/17 12/29/17 16:58 21:53 06:19 POC Glucometer 205 161 159 12/29/17 10:55 POC Glucometer 111 HOSPITAL COURSE: Date of Admission:12/21/17 Date of Discharge: 12/29/17 72 year-old male with a PMH significant for HTN, NIDDM, and BPH. Admitted for RLE cellulitis. RLE cellulitis --12/21 MRI RLE: extensive cellulitis, no evidence of osteomyelitis --worsening erythema and swelling in RLE and new pedal edema in LLE; emerging blisters on RLE; xray pending --keep legs elevated; compression wrappings --continue Zosyn (day #5) --ID following Bilateral lower extremity edema --multifactorial: chronic venous insufficiency, soft tissue edema secondary to cellulitis, suspected diastolic dysfunction, pioglitazone (now dc'd) --Echo --compression stockings --suspected diastolic dysfunction without overt/decompensated CHF; may need lasix as outpatient; LICA stenosis --ASA --arotid US noted and d/w patient: 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 Starting ASA. Hypertension --BP elevated in setting of new fluid overload in b/l LE --increase ramipril to 20mg --consider diuretic NIDDM --continue oral meds --Novolog sliding scale coverage BPH --continue Flomax FEN Fluids: PO intake adequate Electrolytes: replete as indicated Nutrition: diabetic, low sodium DVT prophylaxis: subq heparin Physical therapy Dispo: continues to require inpatient care. Full code. 8. LICA stenosis, 70% REC: use glimiperide 4mg daily januvia 100mg daily bgm qid novolog insulin may benifit from glp1 as outpatient levemir 10 units if sugar over 200mg/dl in am RLE cellulitis RT leg edema Possible chronic venous insufficiency DM - still with mild warmth/erythema -- switch to clindamycin po -- diuresis as needed, leg elevation Discharge Summary Reason For Visit: CELLULITIS OF RIGHT LOWER EXTREMITY Current Active Problems Cellulitis (Acute) Cellulitis of right foot (Acute) Diabetes (Acute) Condition: Stable - Instructions Referrals: Lalito Lozano MD [Primary Care Provider] - - Home Medications Comprehensive Discharge Medication List: Ambulatory Orders Alfuzosin HCl [Alfuzosin HCl ER] 10 mg PO DAILY 12/21/17 Gardiance 25 mg PO DAILY 12/21/17 Pioglitazone HCl 30 mg PO DAILY 12/21/17 Ramipril [Altace] 50 mg PO DAILY 12/21/17 Sitagliptin Phosphate [Januvia] 100 mg PO DAILY 12/21/17 - Discharge Referral Referred to [facility] Med [facility] No
[2017-12-29 14:52] VITALS: BP 121/82; PULSE 84; TEMP 98.5
== END 2017-12-29 16:17 | disposition home or self-care (01) | DRG 383 ==
LOC: JER 12:06 → JERBED 13:41 → J6S 21:07
PROVIDERS: ADMIT Internal Medicine; ATTEND Nurse Practitioner Acute Care
DX: L03.115 Cellulitis of right lower limb (principal); N40.0 Benign prostatic hyperplasia without lower urinary tract symptoms; I10 Essential (primary) hypertension; E87.1 Hypo-osmolality and hyponatremia; E78.00 Pure hypercholesterolemia, unspecified; N17.9 Acute kidney failure, unspecified; B35.3 Tinea pedis; I07.1 Rheumatic tricuspid insufficiency; R09.89 Other specified symptoms and signs involving the circulatory and respiratory systems; E11.51 Type 2 diabetes mellitus with diabetic peripheral angiopathy without gangrene; I11.9 Hypertensive heart disease without heart failure; B35.1 Tinea unguium; E11.40 Type 2 diabetes mellitus with diabetic neuropathy, unspecified; E11.65 Type 2 diabetes mellitus with hyperglycemia; I65.22 Occlusion and stenosis of left carotid artery
CPT/HCPCS: 36415; 73590-TC-RT-FY; 73630-TC-RT-FY; 73718-TC; 80048; 80053; 80061; 81003; 82962; 83036; 83605; 83721; 83735; 83880; 85025; 85027; 85610; 85651; 86140; 87040; 93005; 93010; 93306-TC; 93880-TC; 93971-TC; 97116-GP; 97161-GP; 99283-25; J1644; J7030